=== PATIENT | female | born 1950 | race Caucasian/White ===

== ENCOUNTER → 2020-04-29 09:59 | Outpatient (BNVA) | payer MEDICARE, MEDICAID, SELFPAY | PROVIDERS: Family Provider Family Medicine; Visit Provider Nurse Practitioner | DX: I10 Essential (primary) hypertension (principal); I69.30 Unspecified sequelae of cerebral infarction; J44.9 Chronic obstructive pulmonary disease, unspecified; F41.8 Other specified anxiety disorders; R32 Unspecified urinary incontinence; R73.9 Hyperglycemia, unspecified; E55.9 Vitamin D deficiency, unspecified | CPT/HCPCS: 80053; 80061; 82306; 82607; 83036; 84443; 85025 ==

== ENCOUNTER → 2020-04-30 09:42 | Outpatient (BNVA) | payer MEDICARE, MEDICAID, SELFPAY | PROVIDERS: Family Provider Family Medicine; Visit Provider Nurse Practitioner | DX: I10 Essential (primary) hypertension (principal); R32 Unspecified urinary incontinence | CPT/HCPCS: 80053; 81003; 87077; 87086; 87184 ==

== ENCOUNTER → 2020-09-22 14:22 | Outpatient (BNVA) | payer MEDICARE, MEDICAID, SELFPAY | PROVIDERS: Family Provider Family Medicine; PCP Family Medicine; Referring Provider Family Medicine; Visit Provider Specialist | DX: S82.831D Other fracture of upper and lower end of right fibula, subsequent encounter for closed fracture with routine healing (principal); X58.XXXD Exposure to other specified factors, subsequent encounter | CPT/HCPCS: 73590 ==

== ENCOUNTER 2021-03-22 14:02 | Inpatient (IN) | payer MEDICARE, MEDICAID, SELFPAY ==
[2021-03-22] VITALS (58 sets, daily range): BP systolic 128–149; BP diastolic 60–75; PULSE 64–69; RESP 18–20; TEMP 36.7–37.2; O2SAT 89–94; BMI 21.9; BMI 26.5
--- NOTE | 2021-03-22 14:04 | ED_ITS ---
HPI - Fall General: Chief Complaint: Fall Stated Complaint: FALL/ HIP AND WRIST PAIN Time Seen by Provider: 03/22/21 14:03 History of Present Illness: HPI Narrative: Ms Carty is a 70 yo lady with unclear history who [facility] who presents via [facility] due to fall. She fell out of bed and landed on left side. No preceeding CP, SOB, dizziness, or lightheadedness. No LOC. Immediate pain in wrist and hip. Unable to get up or ambulate. Moderate to severe intensity sharp pain worse with movement. No numbness of tingling. Review of Systems General: Reports: 10 or more systems reviewed and unremarkable except in HPI and below PFSH ED PFSH: Medical History Anxiety with depression COPD (chronic obstructive pulmonary disease) Dependent on walker for ambulation Environmental and seasonal allergies Essential (primary) hypertension History of CVA with residual deficit Right side weakness Urine incontinence Surgical History No history of previous surgery Family History Other Cancer Dementia Diabetes Hypertension Stroke Denies family history of Anesthesia complication Bleeding disorder Social History Smoking and tobacco status: former smoker Second hand smoke exposure: No Smoking risk assessment/counseling performed?: No Alcohol intake: former Desire information about alcohol rehabilitation?: No Counseling given: No Desire information about substance/drug rehabilitation?: No Counseling given: No Adopted: No Caregiver/support person: Yes Lives independently: No Household members: family Housing: House Marital status: Number of children: 3 service: No Current occupational status: retired Pets and animals: Yes Pets & animals: cat(s) and dog(s) History of recent travel: No Current gender identity: Female Physical Exam Narrative: EXAM NARRATIVE: GENERAL/CONSTITUTIONAL - frail-appearing. No acute distress. uncomfortable due to pain Eyes - PERRL, no conjunctival injection ENMT - Atraumatic external nose and ears. Moist mucous membranes NECK - supple. trachea midline CARDIOVASCULAR - regular rate and rhythm. Peripheral pulses 2+ and equal RESPIRATORY -clear to auscultation bilaterally. No retractions or accessory muscle use. ABDOMEN/GI - Nontender/Nondistended. No tenderness to percussion or evidence of peritonitis MSK - left wrist closed deformity with distal CMS intact. Left hip limited ROM severely due to pain, no obvious deformity, closed, distal CMS intact. No other abnormalities on head to toe exam. SKIN - Warm, Dry NEURO - alert and appropriately oriented. strength and sensation intact. Moves all extremities equally. PSYCH - Appropriate mood and affect Course ED course: - Patient was seen and evaluated by me at bedside - Patient placed on cardiac monitors, IV access obtained - Initial evaluation notable for frail appearance, likely close wrist and hip injury - Imaging notable for hip and wrist fracture - labs as noted - Upon serial reexamination after treatment the patient was improved with analgesia - ortho contacted, plan to admit to medicine team - Based on patient history, evaluation, labs, and imaging as interpreted the mos t likely cause of the patient's condition is fall with fractures - The results of ED evaluation were discussed with the patient including plan for admission due to requirement for level of care not available if discharged to prevent significant worsening/deterioration. - Hospitalist contacted and agreed to admit the patient - Patient was admitted without further deterioration or significant events. Vital Signs: Vital signs: Vital Signs Temperature 97.8 F 03/24/21 12:00 Pulse Rate 83 03/24/21 12:00 Respiratory Rate 16 03/24/21 12:00 Blood Pressure 84/58 03/24/21 12:00 Pulse Oximetry 96 03/24/21 12:00 MDM - Fall Medical Records: Attestation: I reviewed the patient's medical records. Lab Data: Attestation: I reviewed the patient's lab results. Labs: Lab Results 03/22/21 03/22/21 03/22/21 16:12 16:12 16:12 WBC 14.3 10^3/uL H 10 ^3/uL (4.0-10.0) RBC 4.26 10^6/uL 10^6 /uL (4.1-5.3) Hgb 13.5 g/dL g/dL (11.5-15.3) Hct 39.6 % % (37.0-47.0) MCV 93.0 fl fl (81-99) MCH 31.7 pg pg (28.0-34.0) MCHC 34.1 g/dL g/dL (30.0-36.0) RDW 13.1 % % (12.1-15.1) Plt Count 223 10^3/cmm 10^3 /cmm (130-400) MPV 10.6 fL H fL (7.4-10.4) Neut % (Auto) 87.0 % % Lymph % (Auto) 6.3 % % Young % (Auto) 5.9 % % Eos % (Auto) 0.1 % % Baso % (Auto) 0.3 % % Neut # (Auto) 12.42 10^3/uL H 1 0^3/uL (1.8-7.7) Lymph # (Auto) 0.9 10^3/uL 10^3/ uL (0.8-4.8) Young # (Auto) 0.8 10^3/uL 10^3/ uL (0.2-0.9) Eos # (Auto) 0.0 10^3/uL 10^3/ uL (0.0-0.8) Baso # (Auto) 0.0 10^3/uL 10^3/ uL (0.0-0.1) Nucleated RBC % (a uto) 0 % % Nucleated RBCs # 0.0 /100WBC /100W BC Sodium 138 mmol/L mmol/L (136-145) Potassium 4.2 mmol/L mmol/L (3.5-5.1) Chloride 103 mmol/L mmol/L (98-107) Carbon Dioxide 24 mmol/L mmol/L (22-29) Anion Gap 15.2 (5-19) BUN 17 mg/dL mg/dL (8-23) Creatinine 0.4 mg/dL L mg/dL (0.5-0.9) GFR Calculation 158.3 mL/min H mL /min (90-130) Glucose 133 mg/dL H mg/dL (65-115) Calculated Osmolal ity 289 mOsm/kg mOsm/ kg (285-295) Calcium 8.9 mg/dL mg/dL (8.5-10.5) Total Bilirubin 0.5 mg/dL mg/dL (0.15-1.2) AST 16 U/L U/L (0-32) ALT 16 U/L U/L (0-33) Alkaline Phosphata se 52 IU/L IU/L (35-105) Troponin T Baselin e 6 ng/L ng/L (0-10) Total Protein 6.5 g/dL L g/dL (6.6-8.7) Albumin 4.1 g/dL g/dL (3.5-5.2) Globulin 2.4 g/dL g/dL (1.3-4.6) Procalcitonin 03/22/21 16:12 WBC RBC Hgb Hct MCV MCH MCHC RDW Plt Count MPV Neut % (Auto) Lymph % (Auto) Young % (Auto) Eos % (Auto) Baso % (Auto) Neut # (Auto) Lymph # (Auto) Young # (Auto) Eos # (Auto) Baso # (Auto) Nucleated RBC % (a uto) Nucleated RBCs # Sodium Potassium Chloride Carbon Dioxide Anion Gap BUN Creatinine GFR Calculation Glucose Calculated Osmolal ity Calcium Total Bilirubin AST ALT Alkaline Phosphata se Troponin T Baselin e Total Protein Albumin Globulin Procalcitonin 0.03 ng/mL ng/mL (0-0.5) EKG Data^: EKG 1: Attestation: I personally reviewed and interpreted this EKG as follows: EKG interpretation date: 03/22/21 EKG interpretation time: 17:15 Interpretation: Twelve-lead EKG shows a regular rhythm at a rate of 66. [place] interval 197. QRS duration 81. QTc 440. left [place] deviation. Interpretation: sinus Rhythm. Discharge Plan Discharge Patient Disposition: Admitted As Inpatient Admit Provider: Austin Rosado Condition: Stable Discharge Diet: Regular Discharge Activity: As per PT/OT instructions Coding Level of Care Code ED Cytotechnologist/Cytology Supervisor for Chg Giovani
--- NOTE | 2021-03-22 14:33 | XRR_ITS ---
PROCEDURE INFORMATION: Exam: XR Left Femur Exam date and time: 03/22/2021 2:33 PM Age: 70 years old Clinical indication: Trauma. Fall out of bed with left thigh/upper leg injury. Pain. TECHNIQUE: Imaging protocol: XR Left femur. Views: 2 views. COMPARISON: CT abdomen pelvis w con* [id number] 01/17/2018 6:36 AM FINDINGS: There is a displaced subcapital/transcervical fracture involving the proximal left femur. Patella baja is noted; correlate for quadriceps dysfunction. No significant osteoarthritis involves the background left hip. Atherosclerotic arterial calcifications are noted. XR/XR femur LT min 2V* [id number] IMPRESSION: 1. Displaced subcapital/transcervical fracture involving the proximal left femur. 2. Patella baja is noted; correlate for quadriceps dysfunction.
--- NOTE | 2021-03-22 14:33 | XRR_ITS ---
PROCEDURE INFORMATION: Exam: XR Left Wrist Exam date and time: 03/22/2021 2:33 PM Age: 70 years old Clinical indication: Trauma. Fall out of bed with left wrist injury. Pain. TECHNIQUE: Imaging protocol: XR Left wrist. Views: 3 or more views. COMPARISON: No relevant prior studies available. FINDINGS: There is a comminuted, mildly displaced intra-articular fracture involving the distal radius. There is a minimally displaced fracture involving the ulnar styloid. The scapholunate and lunotriquetral intervals are maintained. No chondrocalcinosis is seen. XR/XR wrist LT min 3V* [id number] IMPRESSION: 1. Comminuted, mildly displaced intra-articular fracture involving the distal radius. 2. Minimally displaced fracture involving the ulnar styloid.
--- NOTE | 2021-03-22 14:33 | XRR_ITS ---
PROCEDURE INFORMATION: Exam: XR Left Hip Exam date and time: 03/22/2021 2:33 PM Age: 70 years old Clinical indication: Trauma. Fall out of bed with left hip injury. Pain. TECHNIQUE: Imaging protocol: XR Left hip. Views: 2 or 3 views hip with pelvis when performed. COMPARISON: CT abdomen pelvis w con* [id number] 01/17/2018 6:36 AM FINDINGS: There is a displaced subcapital/transcervical fracture involving the proximal left femur. No significant osteoarthritis involves the background left hip. Atherosclerotic arterial calcifications are noted. XR/XR hip LT 2-3V wo/w pel* [id number] IMPRESSION: Displaced subcapital/transcervical fracture involving the proximal left femur.
--- NOTE | 2021-03-22 14:34 | CT_ITS ---
WS: [id number] CT HEAD TECHNIQUE: Noncontrast CT of the head obtained from the skullbase to the vertex. CLINICAL INFORMATION: fall, on antiplatelet COMPARISON: CT April 2017 DLP: 851.[address] scans at [facility] use at least one of these dose optimization techniques: automated e xposure control; mA and/or kV adjustment per patient size (includes targeted exams where dose is matc hed to clinical indication); or iterative reconstruction. FINDINGS: No evidence of intracranial hemorrhage or mass effect. Ventricular system and basal cisterns are harper nt. Moderate small vessel changes with moderate parenchymal volume loss. Chronic lacunar infarcts in bilateral basal ganglia and bilateral thalami. Intracranial vascular calcification. No extra-axial fl uid collections. No evidence of mass or mass effect. Paranasal sinuses and mastoid air cells are well aerated. .Normal visualized soft tissues. CT/CT head wo con* [id number] IMPRESSION: 1. No evidence of intracranial hemorrhage or mass effect. 2. Moderate small vessel changes with moderate parenchymal volume loss. 3. Chronic lacunar infarcts in the bilateral basal ganglia and thalami. 4. No acute intracranial findings.
--- NOTE | 2021-03-22 15:43 | ECG_ITS ---
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 Measurements Intervals [place] Rate: 66 P: 77 MT: 197 QRS: -40 QRSD: 81 T: 77 QT: 418 QTc: 440 Interpretive Statements SINUS RHYTHM LEFT AXIS DEVIATION [QRS AXIS < -30] NONSPECIFIC T-WAVE ABNORMALITY INTERPRETATION BASED ON A DEFAULT AGE OF 40 YEARS Compared to ECG 01/17/2018 12:24:54 T-wave abnormality now present First degree AV block no longer present Incomplete right bundle-branch block no longer present Myocardial infarct finding no longer present Electronically Signed On 03-23-2021 23:25:49 CDT by Shakila Sánchez M.D. [id number] f
[2021-03-22 16:33] LABS: Basophils % 0.3 %; Eosinophils % 0.1 %; Hematocrit 39.6 % (37.0-47.0); Hemoglobin 13.5 g/dL (11.5-15.3); Lymphocytes # 0.9 10^3/uL (0.8-4.8); Lymphocytes % 6.3 %; Mean Corpuscular HGB Conc 34.1 g/dL (30.0-36.0); Mean Corpuscular Hemoglobin 31.7 pg (28.0-34.0); Mean Platelet Volume 10.6 fL (7.4-10.4); Monocytes # 0.8 10^3/uL (0.2-0.9); Monocytes % 5.9 %; Neutrophils # 12.42 10^3/uL (1.8-7.7); Nucleated Red Blood Cells % 0 %; Platelet Count 223 10^3/cmm (130-400); Red Blood Count 4.26 10^6/uL (4.1-5.3); Red Cell Distribution Width 13.1 % (12.1-15.1); White Blood Count 14.3 10^3/uL (4.0-10.0)
[2021-03-22] MEDS: morphine 4 mg/mL SDV 1 mL 2 MG IVP (16:41)
[2021-03-22 16:49] LABS: Troponin(5th) Baseline 6 ng/L (0-10)
[2021-03-22 16:50] LABS: Alanine Aminotransferase 16 U/L (0-33); Albumin Level 4.1 g/dL (3.5-5.2); Alkaline Phosphatase 52 IU/L (35-105); Anion Gap 15.2 (5-19); Aspartate Amino Transferase 16 U/L (0-32); Blood Urea Nitrogen 17 mg/dL (8-23); Calcium 8.9 mg/dL (8.5-10.5); Carbon Dioxide 24 mmol/L (22-29); Chloride 103 mmol/L (98-107); Creatinine Clr Calc Pharmacy 65.3385; Globulin 2.4 g/dL (1.3-4.6); Glomerular Filtration Rate 158.3 mL/min (90-130); Glucose 133 mg/dL (65-115); Osmolality Calculated 289 mOsm/kg (285-295); Potassium 4.2 mmol/L (3.5-5.1); Sodium 138 mmol/L (136-145); Total Bilirubin 0.5 mg/dL (0.15-1.2); Total Protein 6.5 g/dL (6.6-8.7)
--- NOTE | 2021-03-22 17:21 | PM.HP ---
Providers/Chief Complaint Primary Care Provider: Jodi Tse MD Chief Complaint: FALL/ HIP AND WRIST PAIN History of Present Illness Elvira Carty is a 70 year old female with history of hypertension, dyslipidemia CVA on aspirin Plavix, sustained a mechanical fall, [facility]. She presented to the ER, was diagnosed with left wrist and hip fracture. Dr. Logan consulted requested admission to the hospitalist team. Patient is denying chest pain, syncopal event, fever, diarrhea. She is attributing her fall to losing her balance. She denied any vision changes, strokelike symptoms. Review of Systems Const: Denies: chills Eyes: Denies: change in vision ENMT: Denies: throat pain Card: Denies: chest pain Resp: Denies: dyspnea GI: Denies: abdominal pain : Denies: flank pain Musc: Reports: extremity pain and joint pain Skin/Breast: Denies: rash Neuro: Denies: headache(s) Psych: Denies: anxiety Endo: Denies: polyuria Rusty/Lymph: Denies: easy bruising All/Imm: Denies: urticaria Medications/Allergies Home Medications Medication Instructions Recorded Confirmed Last Taken Type acetaminophen 325 mg PO Q4H PRN 03/22/21 03/22/21 Unknown History amlodipine 2.5 mg PO DAILY@209903/22/21 03/22/21 03/21/21 History bisacodyl 10 mg NM DAILY PRN 03/22/21 03/22/21 Unknown History citalopram 10 mg PO DAILY@79903/22/21 03/22/21 03/22/21 History clonidine HCl 0.05 mg PO BID@03/22/21 03/22/21 03/22/21 History clopidogrel 75 mg PO DAILY@89903/22/21 03/22/21 03/22/21 History fluticasone propion-salmeterol 1 inh INHALATION BID@03/22/21 03/22/21 03/22/21 History hydrocodone-acetaminophen 1 tab PO Q4H PRN 03/22/21 03/22/21 03/22/21 History magnesium hydroxide [Milk of 30 ml PO DAILY PRN 03/22/21 03/22/21 Unknown History Magnesia] simvastatin 20 mg PO DAILY@2100 03/22/21 03/22/21 03/21/21 History sodium phosphates [Enema] 118 ml NM DAILY PRN 03/22/21 03/22/21 Unknown History valsartan 320 mg PO DAILY@0900 03/22/21 03/22/21 03/22/21 History Allergies Allergy/AdvReac Type Severity Reaction Status Date / Time No Known Allergies Allergy Verified 03/22/21 14:11 PFSH Acute PFSH: Medical History Anxiety with depression COPD (chronic obstructive pulmonary disease) Dependent on walker for ambulation Environmental and seasonal allergies Essential (primary) hypertension History of CVA with residual deficit Right side weakness Urine incontinence Surgical History No history of previous surgery Family History Other Cancer Dementia Diabetes Hypertension Stroke Denies family history of Anesthesia complication Bleeding disorder Social History Smoking and tobacco status: former smoker Second hand smoke exposure: No Smoking risk assessment/counseling performed?: No Alcohol intake: former Desire information about alcohol rehabilitation?: No Counseling given: No Desire information about substance/drug rehabilitation?: No Counseling given: No Adopted: No Caregiver/support person: Yes Lives independently: No Household members: family Housing: House Marital status: Number of children: 3 service: No Current occupational status: retired Pets and animals: Yes Pets & animals: cat(s) and dog(s) History of recent travel: No Current gender identity: Female Vitals/I&O/Wt Last Vital Signs Temp 98.0 F 03/22/21 14:04 Pulse 69 03/22/21 14:07 Resp 20 H 03/22/21 16:41 BP 130/66 03/22/21 16:40 Pulse Ox 90 03/22/21 16:40 Weight last 48 hrs Weight 63.503 kg Physical Exam Narrative: EXAM NARRATIVE: Patient was laying comfortably Limited range of motion of left leg, left wrist in splint Left leg is rotated and shortened No vascular compromise S1, S2 sinus rhythm no murmur appreciated Clinically looks dehydrated EOMI, PERRLA Able to understand my questions appropriately Audible stridor or wheezing absent Saturating well on room air Soft abdomen Data : 03/23/21 02:25 03/23/21 02:25 A&P Assessment and plan (1) Closed fracture of proximal end of right fibula: Status: Acute Qualifiers: Encounter type: initial encounter Fracture morphology: other fracture Qualified Code(s): S82.831A - Other fracture of upper and lower end of right fibula, initial encounter for closed fracture (2) Wrist fracture: Status: Acute Additional A&P Information Mechanical fall No signs of syncope, seizure, patient attributing her falls to losing balance while getting out of bed Left hip and wrist fracture Hold aspirin Plavix Dr. Logan consulted N.p.o. after midnight We will keep her on maintenance fluid SCDs DVT prophylaxis Full code Attestations Medical Necessity Statement*: Requiring surgical intervention anticipating stay in the hospital cross more than 2 midnights Time Spent in Patient Care: Greater than 35 minutes Coding Level of Care Code Acute Front Desk Team Member for Chg Fwd Diagnoses Closed fracture of proximal end of right fibula S82.831A Encounter type: initial encounter Fracture morphology: other fracture Wrist fracture S62.109A
[2021-03-22 18:18] LABS: Procalcitonin 0.03 ng/mL (0-0.5)
[2021-03-22 18:34] LABS: Troponin 5 2HR 6.72 ng/L (0-10); Troponin 5 2HR Delta 0.72 ABS# (0-10)
[2021-03-22] MEDS: HYDROmorphone 1 mg/mL INJ 1 mL 0.4 MG IVP (19:40)
--- NOTE | 2021-03-22 20:10 | PC.NURSE ---
SUGAR TONG SPLINT TO LEFT WRIST. CAP REFILL LESS THAN 3 SECONDS FOLLOWING SPLINT APPLICATION.
[2021-03-22] MEDS: amlodipine 5 mg Tablet 2.5 MG PO (21:40)
[2021-03-22] MEDS: cloNIDine 0.1 mg Tablet 0.05 MG PO (21:40)
[2021-03-22] MEDS: HYDROcodone-acetaminophen 10-325 mg Tablet 1 TAB PO (21:40)
[2021-03-22] MEDS: ondansetron 2 mg/ML SDV 2 mL 4 MG IVP (21:40)
[2021-03-22] MEDS: sodium chloride 0.9% 1,000 ML 75 ML IV (21:41)
[2021-03-23] VITALS (19 sets, daily range): BP systolic 105–148; BP diastolic 54–89; PULSE 72–98; RESP 16–18; TEMP 36.3–39; O2SAT 91–97
--- NOTE | 2021-03-23 | SCC_ITS ---
Procedure: 1. Left hip hemiarthroplasty 2. Left closed reduction left distal radius and splinting 9.6 seconds of fluoroscopic guidance, for a cumulative dose of 0.16 mGy, was provided to Dr. Logan by the radiology department. C-arm images of the LEFT wrist were saved for the patient's permanent record. [facility]
--- NOTE | 2021-03-23 | XR_ITS ---
WS: [id number] INTRAOPERATIVE TECHNIQUE: 5 Spot fluoroscopic images for intraoperative purposes. FLUOROSCOPY TIME: 9.6 seconds CLINICAL INFORMATION: DANIEL PICS COMPARISON: None. FINDINGS: Comminuted fracture distal radius post reduction with splint material. Comminuted fracture ulna stylo id. XR/XR wrist LT 1V [id number] IMPRESSION: Images obtained for intraoperative purposes.
[2021-03-23 02:57] LABS: Basophils % 0.4 %; Eosinophils % 0.2 %; Hematocrit 36.3 % (37.0-47.0); Lymphocytes # 1.7 10^3/uL (0.8-4.8); Lymphocytes % 18.5 %; Mean Corpuscular HGB Conc 33.1 g/dL (30.0-36.0); Mean Corpuscular Hemoglobin 31.4 pg (28.0-34.0); Mean Platelet Volume 10.4 fL (7.4-10.4); Monocytes % 10.7 %; Neutrophils # 6.25 10^3/uL (1.8-7.7); Nucleated Red Blood Cells % 0 %; Platelet Count 211 10^3/cmm (130-400); Red Blood Count 3.82 10^6/uL (4.1-5.3)
[2021-03-23 03:21] LABS: Anion Gap 11.1 (5-19); Blood Urea Nitrogen 19 mg/dL (8-23); Calcium 8.7 mg/dL (8.5-10.5); Carbon Dioxide 26 mmol/L (22-29); Chloride 103 mmol/L (98-107); Glomerular Filtration Rate 122.3 mL/min (90-130); Glucose 112 mg/dL (65-115); Magnesium 2.1 mg/dL (1.7-2.3); Osmolality Calculated 285 mOsm/kg (285-295); Potassium 4.1 mmol/L (3.5-5.1); Sodium 136 mmol/L (136-145)
[2021-03-23] MEDS: HYDROmorphone 1 mg/mL INJ 1 mL 0.4 MG IVP (06:01)
--- NOTE | 2021-03-23 06:45 | PC.NURSE ---
Patient was incontinent a moderate amount and post void residual was done of 70 ml.
--- NOTE | 2021-03-23 07:04 | PM.CONSULT ---
Documented by User: EMETERIO Peterson 03/23/21 07:14 Providers/Reason For Consult Consulting Physician/Specialty*: Orthopedics Reason for Consult*: Left hip pain and left wrist pain Attending Physician: Austin Rosado MD Primary Care Provider: Jodi Tse MD History of Present Illness History of Present Illness Elvira Carty is a 70 year old female who lives alone sustained a fall on 03/22/2021. She reports increased left wrist and left hip pain this been constant sharp stabbing in nature. She presented to [facility] emergency room where x-rays confirmed a left wrist and left hip fracture orthopedics was consulted for her injuries. She was evaluated with no family present. She reports constant sharp stabbing pain in the left wrist any movement makes it much worse. Rest is given her some temporary relief. She describes pain in her left wrist denies any pain in her left elbow or shoulder. She ranks it as 5 out of 10 on the pain scale. Any use of the left wrist makes it much worse. She is right-hand dominant. She also reports left hip pain any movement making it much worse. She describes the sharp stabbing spasming type pain that radiates down her left leg. Most of the pain localized to the left hip. She denies any knee or ankle pain. Any use of the leg makes it much worse rest gives her some temporary relief. She denies any back or neck pain she describes the left hip pain as 8 out of 10 on the pain scale. Extensive review the patient's past medical history, surgical history, allergies, social history, past family history, and review of systems were performed. Review of Systems General: Reports: 10 or more systems reviewed and unremarkable except in HPI and below Meds/Allergies Home Medications and Allergies Home Medications Medication Instructions Recorded Confirmed Last Taken Type acetaminophen 325 mg PO Q4H PRN 03/22/21 03/22/21 Unknown History amlodipine 2.5 mg PO DAILY@2100 03/22/21 03/22/21 03/21/21 History bisacodyl 10 mg IN DAILY PRN 03/22/21 03/22/21 Unknown History citalopram 10 mg PO DAILY@0800 03/22/21 03/22/21 03/22/21 History clonidine HCl 0.05 mg PO BID@03/22/21 03/22/21 03/22/21 History clopidogrel 75 mg PO DAILY@89903/22/21 03/22/21 03/22/21 History fluticasone propion-salmeterol 1 inh INHALATION BID@03/22/21 03/22/21 03/22/21 History hydrocodone-acetaminophen 1 tab PO Q4H PRN 03/22/21 03/22/21 03/22/21 History magnesium hydroxide [Milk of 30 ml PO DAILY PRN 03/22/21 03/22/21 Unknown History Magnesia] simvastatin 20 mg PO DAILY@2100 03/22/21 03/22/21 03/21/21 History sodium phosphates [Enema] 118 ml IN DAILY PRN 03/22/21 03/22/21 Unknown History valsartan 320 mg PO DAILY@89903/22/21 03/22/21 03/22/21 History Allergies Allergy/AdvReac Type Severity Reaction Status Date / Time No Known Allergies Allergy Verified 03/22/21 14:11 Current Medications Current Medications Generic Name Dose Route Start Last Admin Trade Name Freq PRN Reason Stop Dose Admin Hydrocodone Bitart/Acetaminophen 1 tab 03/22/21 19:07 03/22/21 21:40 Hydrocodone-Acetaminophen 10-325 Mg Tablet PO 1 tab Q4H PRN Administration Pain Amlodipine Besylate 2.5 mg 03/22/21 21:00 03/22/21 21:40 Amlodipine 5 Mg Tablet PO 2.5 mg DAILY@2099 BARBARA Administration Clonidine HCl 0.05 mg 03/22/21 21:00 03/22/21 21:40 Clonidine 0.1 Mg Tablet PO 0.05 mg BID@ BARBARA Administration Hydromorphone HCl 0.4 mg 03/22/21 19:07 03/23/21 06:01 Hydromorphone 1 Mg/Ml Inj 1 Ml IVP 0.4 mg Q4H PRN Administration pain Sodium Chloride 1,000 mls @ 75 mls/hr 03/22/21 19:07 03/22/21 21:41 Sodium Chloride 0.9% IV 75 mls/hr .[id number] BARBARA Administration Ondansetron HCl 4 mg 03/22/21 19:07 03/22/21 21:40 Ondansetron 2 Mg/Ml Sdv 2 Ml IVP 4 mg Q6H PRN Administration NAUSEA AND VOMITING PFSH Acute PFSH: Medical History Anxiety with depression COPD (chronic obstructive pulmonary disease) Dependent on walker for ambulation Environmental and seasonal allergies Essential (primary) hypertension History of CVA with residual deficit Right side weakness Urine incontinence Surgical History No history of previous surgery Family History Other Cancer Dementia Diabetes Hypertension Stroke Denies family history of Anesthesia complication Bleeding disorder Social History Smoking and tobacco status: former smoker Second hand smoke exposure: No Smoking risk assessment/counseling performed?: No Alcohol intake: former Desire information about alcohol rehabilitation?: No Counseling given: No Desire information about substance/drug rehabilitation?: No Counseling given: No Adopted: No Caregiver/support person: Yes Lives independently: No Household members: family Housing: House Marital status: Number of children: 3 service: No Current occupational status: retired Pets and animals: Yes Pets & animals: cat(s) and dog(s) History of recent travel: No Current gender identity: Female Vitals/I&O/Wt Last Vital Signs Temp 98.9 F 03/23/21 04:00 Pulse 73 03/23/21 04:00 Resp 17 03/23/21 06:01 BP 119/74 03/23/21 04:00 Pulse Ox 92 03/23/21 04:00 Weight last 48 hrs Weight 164 lb 9.6 oz Weight 140 lb Physical Exam Narrative: EXAM NARRATIVE: Evaluation of her lower extremities is obvious deformity to the left lower extremity positive logroll on the left negative on the right. Skin is clear warm feet warm good cap refill. Normal station light touch to both lower extremities. Wiggles her toes are warm to touch dorsalis pedis and posterior tibial pulses are 2+. Calves are supple no medial thigh tenderness. She has no palpable pain about the lumbar spine. Evaluation of the upper extremities. She has a splint on her left wrist and and forearm. Wiggles all digits with normal station light touch. Skin is warm hands are warm with good sensation to light touch. She is tender with palpation over the left distal radius region. She has no palpable pain over the left elbow or shoulder. Radial pulses palpable. She has no palpable pain throughout the right upper extremity at the wrist elbow or shoulder. Normal station light touch full range of motion of the right upper extremity. HENMT: COMMON NORMALS: normocephalic and atraumatic HEAD & SCALP: normocephalic and atraumatic Neck/C-Spine: CERVICAL SPINE: Yes cervical ROM normal Resp: COMMON NORMALS: normal respiratory effort Cardio: COMMON NORMALS: regular rate RATE: regular rate GI: COMMON NORMALS: non-tender : COMMON NORMALS: Yes no CVA tenderness BLADDER/KIDNEY EXAM: Yes no CVA tenderness Back/Pelvis: COMMON NORMALS: no CVA tenderness LUMBAR SPINE/LOWER BACK: Yes normal to inspection Psych: COMMON NORMALS: cooperative and speech normal APPEARANCE: Yes grossly normal SPEECH: Yes normal speech Skin: COMMON NORMALS: no rashes or lesions noted GENERAL SKIN EXAM: no rashes or lesions noted A&P Assessment and plan (1) Displaced fracture of left femoral neck: Discussed treatment options with the patient which would include close reduction of the left distal radius fracture as well as open reduction internal fixation of the left hip with hemiarthroplasty. We will await medical clearance. We will keep her n.p.o. Discussed these treatment courses with Dr. Logan at length and he agrees the above-stated plan. Status: Acute (2) Distal radius fracture, left: Status: Acute Coding Level of Care Code Acute Straight Knife Cutter Machine for [facility] Fwd Exam Comprehensive Diagnoses Displaced fracture of left femoral neck S72.002A Distal radius fracture, left S52.502A Documented by User: Bg Logan DO 03/23/21 08:26 Meds/Allergies Home Medications and Allergies Home Medications Medication Instructions Recorded Confirmed Last Taken Type acetaminophen 325 mg PO Q4H PRN 03/22/21 03/22/21 Unknown History amlodipine 2.5 mg PO DAILY@2100 03/22/21 09/21/21 09/20/21 History bisacodyl 10 mg IN DAILY PRN 03/22/21 03/22/21 Unknown History citalopram 10 mg PO DAILY@79903/22/21 03/22/21 03/22/21 History clonidine HCl 0.05 mg PO BID@03/22/21 03/22/21 03/22/21 History clopidogrel 75 mg PO DAILY@89903/22/21 03/22/21 03/22/21 History fluticasone propion-salmeterol 1 inh INHALATION BID@03/22/21 03/22/21 03/22/21 History hydrocodone-acetaminophen 1 tab PO Q4H PRN 03/22/21 03/22/21 03/22/21 History magnesium hydroxide [Milk of 30 ml PO DAILY PRN 03/22/21 03/22/21 Unknown History Magnesia] simvastatin 20 mg PO DAILY@209903/22/21 03/22/21 03/21/21 History sodium phosphates [Enema] 118 ml IN DAILY PRN 03/22/21 03/22/21 Unknown History valsartan 320 mg PO DAILY@89903/22/21 03/22/21 03/22/21 History Allergies Allergy/AdvReac Type Severity Reaction Status Date / Time No Known Allergies Allergy Verified 03/22/21 14:11 PFSH Acute PFSH: Medical History Anxiety with depression COPD (chronic obstructive pulmonary disease) Dependent on walker for ambulation Environmental and seasonal allergies Essential (primary) hypertension History of CVA with residual deficit Right side weakness Urine incontinence Surgical History No history of previous surgery Family History Other Cancer Dementia Diabetes Hypertension Stroke Denies family history of Anesthesia complication Bleeding disorder Social History Smoking and tobacco status: former smoker Second hand smoke exposure: No Smoking risk assessment/counseling performed?: No Alcohol intake: former Desire information about alcohol rehabilitation?: No Counseling given: No Desire information about substance/drug rehabilitation?: No Counseling given: No Adopted: No Caregiver/support person: Yes Lives independently: No Household members: family Housing: House Marital status: Number of children: 3 service: No Current occupational status: retired Pets and animals: Yes Pets & animals: cat(s) and dog(s) History of recent travel: No Current gender identity: Female A&P Assessment and plan (1) Distal radius fracture, left: possibly fix distal radius today as well Status: Acute Consult Attestations Medical Necessity Statement: per primary service Coding Level of Care Code Acute Straight Knife Cutter Machine for [facility] Fwd Exam Comprehensive Diagnoses Displaced fracture of left femoral neck S72.002A Distal radius fracture, left S52.502A
[2021-03-23] MEDS: cloNIDine 0.1 mg Tablet 0.05 MG PO ×2 (08:49→20:42)
--- NOTE | 2021-03-23 09:44 | P.ANESASSM_ITS ---
Pre-Anesthetic Assessment Pre-Anesthetic Assessment: Height/Weight: Height 1.68 m Weight 74.661 kg Temp Pulse Resp BP Pulse Ox 102.2 F H 79 18 136/72 95 03/23/21 09:24 03/23/21 09:24 03/23/21 09:24 03/23/21 09:24 03/23/21 09:24 Proposed Procedure: Operation Date: 03/23/21 10:25 Proposed Procedures p Hemiarthroplasty Hip(Left) - Bg H Doreen, DO Was Beta Bradley taken within 24 hours: N/A Was Clonidine taken within 24 hours: N/A Social: Social History: No alcohol and No tobacco Exam: Pre-Anes Outpt Exam: alert, oriented x 3, clear to auscultation bilaterally and regular rate & rhythm Airway: Submandibular: WNL Cervical ROM: WNL Dentition: False Pulmonary: Pulmonary: COPD CV/HEM: CV/HEM: HTN Metabolic: Metabolic: Hyperlipidemia Musc/skel: Musc/skel: Weakness Neuropsych: Neuropsych: CVA and Deficit Comments: Blood thinner Anesthetic Plan: ASA status: 3 Anesthesia: General Risk of > 500 ml blood loss (7ml/kg in children): No Meds/Allergies 2 Current Medications: Current Medications Generic Name Dose Route Start Last Admin Trade Name Freq PRN Reason Stop Dose Admin Hydrocodone Bitart /Acetaminophen 1 tab 03/22/21 19:07 03/22/21 21:40 Hydrocodone-Acet aminophen 10-325 M g Tablet PO 1 tab Q4H PRN Administration Pain Amlodipine Besylat e 2.5 mg 03/22/21 21:00 03/22/21 21:40 Amlodipine 5 Mg Tablet PO 2.5 mg DAILY@2100 BARBARA Administration Clonidine HCl 0.05 mg 03/22/21 21:00 03/23/21 08:49 Clonidine 0.1 Mg Tablet PO 0.05 mg BID@ BARBARA Administration Hydromorphone HCl 0.4 mg 03/22/21 19:07 03/23/21 06:01 Hydromorphone 1 Mg/Ml Inj 1 Ml IVP 0.4 mg Q4H PRN Administration pain Sodium Chloride 1,000 mls @ 75 ml s/hr 03/22/21 19:07 03/22/21 21:41 Sodium Chloride 0.9% IV 75 mls/hr .[id number] BARBARA Administration Ondansetron HCl 4 mg 03/22/21 19:07 03/22/21 21:40 Ondansetron 2 Mg /Ml Sdv 2 Ml IVP 4 mg Q6H PRN Administration NAUSEA AND VOMITI NG PFSH Anesthesia PFSH: Medical History Anxiety with depression COPD (chronic obstructive pulmonary disease) Dependent on walker for ambulation Environmental and seasonal allergies Essential (primary) hypertension History of CVA with residual deficit Right side weakness Urine incontinence Surgical History No history of previous surgery Family History Other Cancer Dementia Diabetes Hypertension Stroke Denies family history of Anesthesia complication Bleeding disorder Social History Smoking and tobacco status: former smoker Second hand smoke exposure: No Smoking risk assessment/counseling performed?: No Alcohol intake: former Desire information about alcohol rehabilitation?: No Counseling given: No Desire information about substance/drug rehabilitation?: No Counseling given: No Adopted: No Caregiver/support person: Yes Lives independently: No Household members: family Housing: House Marital status: Number of children: 3 service: No Current occupational status: retired Pets and animals: Yes Pets & animals: cat(s) and dog(s) History of recent travel: No Current gender identity: Female Data Anesthesia CBC & Chem 7: 03/23/21 02:25 03/23/21 02:25 Other Labs: Laboratory Results - last 48 hr 03/22/21 03/22/21 03/22/21 16:12 16:12 16:12 WBC 14.3 H RBC 4.26 Hgb 13.5 Hct 39.6 MCV 93.0 MCH 31.7 MCHC 34.1 RDW 13.1 Plt Count 223 MPV 10.6 H Neut % (Auto) 87.0 Lymph % (Auto) 6.3 Douglas % (Auto) 5.9 Eos % (Auto) 0.1 Baso % (Auto) 0.3 Neut # (Auto) 12.42 H Lymph # (Auto) 0.9 Douglas # (Auto) 0.8 Eos # (Auto) 0.0 Baso # (Auto) 0.0 Nucleated RBC % (auto) 0 Nucleated RBCs # 0.0 Sodium 138 Potassium 4.2 Chloride 103 Carbon Dioxide 24 Anion Gap 15.2 BUN 17 Creatinine 0.4 L GFR Calculation 158.3 H Glucose 133 H Calculated Osmolality 289 Calcium 8.9 Magnesium Total Bilirubin 0.5 AST 16 ALT 16 Alkaline Phosphatase 52 Troponin T Baseline 6 Troponin T 120 Minute Delta Troponin T Total Protein 6.5 L Albumin 4.1 Globulin 2.4 Procalcitonin 03/22/21 03/22/21 03/23/21 16:12 18:05 02:25 WBC 9.0 RBC 3.82 L Hgb 12.0 Hct 36.3 L MCV 95.0 MCH 31.4 MCHC 33.1 RDW 13.0 Plt Count 211 MPV 10.4 Neut % (Auto) 70.0 Lymph % (Auto) 18.5 Douglas % (Auto) 10.7 Eos % (Auto) 0.2 Baso % (Auto) 0.4 Neut # (Auto) 6.25 Lymph # (Auto) 1.7 Douglas # (Auto) 1.0 H Eos # (Auto) 0.0 Baso # (Auto) 0.0 Nucleated RBC % (auto) 0 Nucleated RBCs # 0.0 Sodium Potassium Chloride Carbon Dioxide Anion Gap BUN Creatinine GFR Calculation Glucose Calculated Osmolality Calcium Magnesium Total Bilirubin AST ALT Alkaline Phosphatase Troponin T Baseline Troponin T 120 Minute 6.72 Delta Troponin T 0.72 Total Protein Albumin Globulin Procalcitonin 0.03 03/23/21 02:25 WBC RBC Hgb Hct MCV MCH MCHC RDW Plt Count MPV Neut % (Auto) Lymph % (Auto) Douglas % (Auto) Eos % (Auto) Baso % (Auto) Neut # (Auto) Lymph # (Auto) Douglas # (Auto) Eos # (Auto) Baso # (Auto) Nucleated RBC % (auto) Nucleated RBCs # Sodium 136 Potassium 4.1 Chloride 103 Carbon Dioxide 26 Anion Gap 11.1 BUN 19 Creatinine 0.5 GFR Calculation 122.3 Glucose 112 Calculated Osmolality 285 Calcium 8.7 Magnesium 2.1 Total Bilirubin AST ALT Alkaline Phosphatase Troponin T Baseline Troponin T 120 Minute Delta Troponin T Total Protein Albumin Globulin Procalcitonin Cardiac Studies: No Data to Display
--- NOTE | 2021-03-23 09:47 | PC.CHAP ---
Pastoral Care Encounter/Spiritual Assessment Type of Contact [] Declined skiver operator visit [] Patient/Family/Request visit [] Outpatient visit [] Follow-up visit [] Physician referral [] Code/Alert [x] Routine visit [] Staff referral [] Actively dying [] Patient sleeping [] Family support [] [] Out of room [] Palliative care [] [x] Receiving care in room [] Pre-surgical visit [] Trauma [] Long length of stay [] ICU visit [] Other: Relational/Emotional Strength [] Patient feels connected with others/family/visitors/staff [] Distress [] Loneliness/isolation [] Abandonment Spirituality of Patient [] Person of Rosibel [] Attends Temple of their [place] [] Believes in Prayer [] Reads Bible or Scientology materials [] There are Spiritual issues to be addressed Glass Bead Maker Interventions [] Prayer [] Active listening [] Non-anxious presence [] Spiritual/emotional support [] Crisis/trauma care [] Spiritual counseling [] Bereavement support [] Provided bereavement packet [] Provided Bible/devotional materials [] Provided toy/stuffed animal, coloring book to patient or family member [] Provided Communion [] Anointing/[place] [] Salvation [] Completed spiritual assessment [] Other: Impact on Illness or Injury [] Angry [] Fearful [] Anxious [] Often cries [] Exhaustion [] Unable to work [] Unable to attend confucianism [] Unable to walk/stand [] Unable to read [] Unable to drive [] Unable to eat/drink [] Unable to sleep [] Unable to be with family [] Patient intubated [] Other: Summary Time spent with patient
--- NOTE | 2021-03-23 09:49 | W.PM.OPSUD ---
Surgery/Procedure H&P Update DATE OF PROCEDURE: March 23, 2021 DATE H&P PERFORMED: 03/23/21 PLANNED PROCEDURE: Operation Date: 03/23/21 10:25 Proposed Procedures p Hemiarthroplasty Hip(Left) - Bg Logan DO
[2021-03-23] MEDS: acetaminophen 1,000 MG/100 ML PIGGYBACK 400 MG IV (10:04)
[2021-03-23] MEDS: sodium chloride 0.9% 1,000 ML 30 ML IV (10:04)
[2021-03-23] MEDS: vancomycin 1,000 MG SDV 1000 MG XX (11:45)
--- NOTE | 2021-03-23 12:34 | PM.OP ---
Operative Report Date of procedure: March 23, 2021 Pre-op Diagnosis: Left femoral neck fracture Post-op diagnosis: same Surgeon: Bg Logan Lead Enterprise Architect: Sanchez Cabrera Lead Enterprise Architect: EMETERIO Peterson was used as an pediatric physical therapy assistant in this case for the reason of having extra bare hands to perform the case. As well as some experience to help with the reduction of the hip. Sanchez assisted with retraction positioning closure and helping hold the leg and reduced leg into position. Anesthesia: General Estimated blood loss (mL): 20 Condition: stable Disposition: PACU
--- NOTE | 2021-03-23 13:37 | PM.PN ---
Subjective Subjective: Interval history: Patient was seen before surgery I did talk with her son who had some questions regarding surgery, he did agreed to continue with the current plan of surgical intervention Patient did not endorse any complaints overnight, pain was under control Postoperatively stable vitals Estimated blood loss 20 mL 1. Left hip hemiarthroplasty 2. Left closed reduction left distal radius and splinting Vitals/I&O/Wt Last Vital Signs Temp 97.7 F 03/23/21 13:20 Pulse 80 03/23/21 13:20 Resp 18 03/23/21 13:20 BP 148/89 03/23/21 13:20 Pulse Ox 94 03/23/21 13:20 03/22/21 03/23/21 03/23/21 22:59 06:59 14:59 Intake Total 160 / 160 Output Total 100 / 100 Balance 60 / 60 Weight last 48 hrs Weight 74.661 kg Weight 63.503 kg Physical Exam Narrative: EXAM NARRATIVE: Patient was laying supine without any active discomfort elderly female S1, S2 no murmur appreciated clinically does look slightly dehydrated Abdomen soft Lower extremity no vascular compromise Presurgery left leg was rotated and short which improved after the surgery No neurological deficits Saturating well on room air Awake and alert Neurological deficits Patient not complaining of active pain Urinary Catheter Management^: [facility]is: Cath Placed During This Visit: yes Urinary Catheter Date of Insertion: 03/23/21 Urinary Catheter Time of Insertion: 11:22 Data : 03/23/21 02:25 03/23/21 02:25 A&P Assessment and plan (1) Distal radius fracture, left: Status: Acute (2) Displaced fracture of left femoral neck: Status: Acute (3) COPD (chronic obstructive pulmonary disease): Status: Acute (4) Anxiety with depression: Status: Acute (5) History of CVA with residual deficit: Status: Acute (6) Essential (primary) hypertension: Status: Acute (7) Urine incontinence: Status: Acute (8) Dependent on walker for ambulation: Status: Acute Additional A&P Information Postop day 0 1. Left hip hemiarthroplasty 2. Left closed reduction left distal radius and splinting Postoperatively patient is doing well with normal vitals blood pressure 140/89 mmHg patient is not complaining of active pain We will repeat labs tomorrow estimated blood loss during surgery 20 mL Patient is doing well successfully extubated to room air Watch for postoperative complications closely Incentive spirometry DuoNeb Opioids with bowel regimen PT evaluation Start her on cardiac diet Full code DVT prophylaxis to be added as per orthopedics Aspirin, Plavix to be started tomorrow, valsartan can be started as well for her blood pressure Attestations Medical Necessity Statement*: Continue medical management Time Spent in Patient Care: 16 - 35 minutes Coding Level of Care Code Acute Automotive Glass Specialist for [facility] Fwd Diagnoses Distal radius fracture, left S52.502A Displaced fracture of left femoral neck S72.002A COPD (chronic obstructive pulmonary disease) J44.9 Anxiety with depression F41.8 History of CVA with residual deficit I69.30 Essential (primary) hypertension I10 Urine incontinence R32 Dependent on walker for ambulation Z99.89
--- NOTE | 2021-03-23 13:58 | ANE.PACU2 ---
Inpatient post-anesthesia follow up: Airway intact: Yes Vital signs: Temperature 97.7 F Pulse Rate [Apical ] 64 Pulse Rate 80 Respiratory Rate 18 Blood Pressure [Le ft Arm] 149/68 Blood Pressure 148/89 Pulse Oximetry 94 Oxygen Delivery Me thod Room Air Oxygen Flow Rate 3 Fraction of Inspir ed Oxygen Hydration adequate: Yes Nausea and vomiting: No Pain level: 2 Mental status: Baseline
[2021-03-23 14:35] LABS: Basophils # 0.1 10^3/uL (0.0-0.1); Basophils % 0.3 %; Hematocrit 39.2 % (37.0-47.0); Hemoglobin 12.3 g/dL (11.5-15.3); Lymphocytes # 0.9 10^3/uL (0.8-4.8); Lymphocytes % 4.9 %; Mean Corpuscular HGB Conc 31.4 g/dL (30.0-36.0); Mean Corpuscular Hemoglobin 31.9 pg (28.0-34.0); Mean Corpuscular Volume 101.6 fl (81-99); Mean Platelet Volume 10.4 fL (7.4-10.4); Monocytes # 0.8 10^3/uL (0.2-0.9); Monocytes % 4.7 %; Neutrophils # 15.57 10^3/uL (1.8-7.7); Neutrophils % 89.6 %; Nucleated Red Blood Cells % 0 %; Platelet Count 207 10^3/cmm (130-400); Red Blood Count 3.86 10^6/uL (4.1-5.3); Red Cell Distribution Width 13.2 % (12.1-15.1); White Blood Count 17.4 10^3/uL (4.0-10.0)
[2021-03-23] MEDS: HYDROcodone-acetaminophen 10-325 mg Tablet 1 TAB PO ×2 (14:36→19:46)
[2021-03-23] MEDS: atorvastatin 40 mg Tablet 20 MG PO (20:41)
[2021-03-23] MEDS: amlodipine 5 mg Tablet 2.5 MG PO (20:42)
[2021-03-24] VITALS (12 sets, daily range): BP systolic 84–114; BP diastolic 58–70; PULSE 75–103; RESP 14–18; TEMP 36.6–37.4; O2SAT 91–98
[2021-03-24 02:36] LABS: Basophils % 0.2 %; Hematocrit 32.3 % (37.0-47.0); Hemoglobin 10.6 g/dL (11.5-15.3); Lymphocytes # 1.2 10^3/uL (0.8-4.8); Mean Corpuscular HGB Conc 32.8 g/dL (30.0-36.0); Mean Corpuscular Hemoglobin 31.7 pg (28.0-34.0); Mean Corpuscular Volume 96.7 fl (81-99); Mean Platelet Volume 10.5 fL (7.4-10.4); Monocytes # 1.7 10^3/uL (0.2-0.9); Monocytes % 16.1 %; Neutrophils % 71.5 %; Nucleated Red Blood Cells % 0 %; Platelet Count 222 10^3/cmm (130-400); Red Blood Count 3.34 10^6/uL (4.1-5.3); Red Cell Distribution Width 13.2 % (12.1-15.1); White Blood Count 10.2 10^3/uL (4.0-10.0)
[2021-03-24 02:56] LABS: Anion Gap 14.4 (5-19); Blood Urea Nitrogen 21 mg/dL (8-23); Calcium 8.5 mg/dL (8.5-10.5); Carbon Dioxide 25 mmol/L (22-29); Chloride 104 mmol/L (98-107); Glucose 142 mg/dL (65-115); Osmolality Calculated 293 mOsm/kg (285-295); Potassium 4.4 mmol/L (3.5-5.1); Sodium 139 mmol/L (136-145)
--- NOTE | 2021-03-24 07:37 | P.PN_ITS ---
Subjective Subjective: Interval history: POD 1 patient alert in no obvious distress. No family present. Vitals/I&O/Wt Last Vital Signs Temp 99.1 F 03/24/21 04:00 Pulse 103 H 03/24/21 04:00 Resp 17 03/24/21 04:00 BP 114/70 03/24/21 04:00 Pulse Ox 91 03/24/21 04:00 03/23/21 03/24/21 03/24/21 22:59 06:59 14:59 Intake Total 1300 / 2460 260 / 2720 Output Total 400 / 500 450 / 950 Balance 900 / 1960 -190 / 1770 Weight last 48 hrs Weight 164 lb 9.6 oz Weight 140 lb Physical Exam Narrative: EXAM NARRATIVE: Left upper extremity: Splint intact fingers are warm, with good capillary refill. Wiggles digits appears to have normal sensation light touch. Left lower extremity incisions and dressing clean and dry. Dorsiflex and plantar flexes both feet toes are warm with good cap refill. Calves are supple no medial thigh tenderness. Urinary Catheter Management^: [facility]is: Cath Placed During This Visit: yes, but has since been removed by the nurse Reason for Continuing Indwelling Catheter: Perioperative Use in Selected Surgeries Urinary Catheter Date of Insertion: 03/23/21 Urinary Catheter Time of Insertion: 11:22 Date Urinary Catheter Removed: 03/24/21 Time Urinary Catheter Discontinued: 06:08 Data : 03/24/21 02:08 03/24/21 02:08 A&P Assessment and plan (1) Distal radius fracture, left: Status: Acute (2) Displaced fracture of left femoral neck: Status: Acute Additional A&P Information Continue to ice and elevate left upper extremity with splint and remain nonweightbearing. In regards to the left lower extremity weightbearing as tolerated with physical therapy. Dressing change with Xeroform, 4 x 4's and tape. Continue social services director consult for placement. Attestations Medical Necessity Statement*: Defer to medical team Coding Level of Care Code Acute Wireless Architect for [facility] Diagnoses Distal radius fracture, left S52.502A Displaced fracture of left femoral neck S72.002A
[2021-03-24] MEDS: cloNIDine 0.1 mg Tablet 0.05 MG PO ×2 (08:04→20:45)
[2021-03-24] MEDS: HYDROcodone-acetaminophen 10-325 mg Tablet 1 TAB PO (08:04)
[2021-03-24] MEDS: losartan 50 mg Tablet 100 MG PO (08:05)
[2021-03-24] MEDS: clopidogrel 75 mg Tablet PO (08:05)
[2021-03-24] MEDS: sennosides-docusate Tablet 2 TAB PO (08:05)
[2021-03-24] MEDS: citalopram 20 mg Tablet 10 MG PO (08:05)
[2021-03-24] MEDS: enoxaparin 40 mg/0.4 mL Syringe SUBCUT (08:06)
--- NOTE | 2021-03-24 11:57 | PM.DCS ---
Discharge Providers Date of Admission: 03/22/21 17:16 Date of Discharge: March 24, 2021 Attending Provider at Admission: Austin Rosado MD Attending Provider at Discharge: Austin Rosado MD Primary Care Provider: Jodi Tse MD Diagnoses at Discharge Discharge Diagnosis (1) Distal radius fracture, left: Status: Acute (2) Displaced fracture of left femoral neck: Status: Acute Reason for Visit Reason for Visit: FALL/ HIP AND WRIST PAIN Hospital Course Hospital Course 70-year-old female who presented after sustaining a fall at her group home, patient is stating that she lost her balance slipped out of bed and fell on left side. She was sent to the ER for further evaluation, she was diagnosed with left wrist fracture, left hip fracture status post left hip hemiarthroplasty closed reduction of left distal radius with splinting on 03/23. For DVT prophylaxis she will stay on Eliquis 2.5 mg twice a day for 2 weeks and then continue her Plavix regimen. Opioids with bowel regimen also prescribed at the time of discharge. PT did see her after her surgery please see their instructions for further details. Postoperatively she did require nasal cannula oxygen supplementation 3 to 4 L, at the time of discharge she is not requiring supplemental oxygen she was saturating well on room air she is complaining of mild pain in left hip 07/11. She was working with PT and OT. [facility] Physical Exam Narrative: EXAM NARRATIVE: Patient was sitting in her recliner saturating well on room air, eating breakfast elderly female S1, S2 no murmur appreciated clinically does look slightly dehydrated Abdomen soft Lower extremity no vascular compromise Left leg wrapped No neurological deficits Saturating well on room air Awake and alert no Neurological deficits Urinary Catheter Management^: Solis: Cath Placed During This Visit: yes, but has since been removed by the nurse Reason for Continuing Indwelling Catheter: Perioperative Use in Selected Surgeries Urinary Catheter Date of Insertion: 03/23/21 Urinary Catheter Time of Insertion: : Date Urinary Catheter Removed: 03/24/21 Time Urinary Catheter Discontinued: 06:08 Discharge Data Data Completed and Pending: Completed Studies During Hospitalization Category Date Time Status CT head wo con* 7 0450 Urgent Cat Scan 03/22/21 14:34 Completed XR femur LT min 2 V* [id number] Urgent Exams 03/22/21 14:33 Completed XR hip LT 2-3V wo /w pel* [id number] Urge nt Exams 03/22/21 14:33 Completed XR wrist LT 1V 73 [id number] Routine Exams 03/23/21 Completed XR wrist LT min 3 V* [id number] Urgent Exams 03/22/21 14:33 Completed Labs from last 24 hours 03/24/21 03/24/21 03/23/21 02:08 02:08 14:25 WBC 10.2 H 17.4 H RBC 3.34 L 3.86 L Hgb 10.6 L 12.3 Hct 32.3 L 39.2 MCV 96.7 101.6 H D MCH 31.7 31.9 MCHC 32.8 31.4 D RDW 13.2 13.2 Plt Count 222 207 MPV 10.5 H 10.4 Neut % (Auto) 71.5 89.6 Lymph % (Auto) 12.0 4.9 Perry % (Auto) 16.1 4.7 Eos % (Auto) 0.0 0.0 Baso % (Auto) 0.2 0.3 Neut # (Auto) 7.30 15.57 H Lymph # (Auto) 1.2 0.9 Perry # (Auto) 1.7 H 0.8 Eos # (Auto) 0.0 0.0 Baso # (Auto) 0.0 0.1 Nucleated RBC % (a uto) 0 0 Nucleated RBCs # 0.0 0.0 Sodium 139 Potassium 4.4 Chloride 104 Carbon Dioxide 25 Anion Gap 14.4 BUN 21 Creatinine 0.7 GFR Calculation 83.0 L Glucose 142 H Calculated Osmolal ity 293 Calcium 8.5 Vitals: Last Vital Signs Temp 99.3 F 03/24/21 08:00 Pulse 101 H 03/24/21 08:00 Resp 16 03/24/21 08:00 BP 114/70 03/24/21 08:05 Pulse Ox 95 03/24/21 08:00 Discharge Plan Discharge Patient Disposition: Xfer SNF Condition: Stable Prescriptions: New Eliquis 2.5 mg tablet 2.5 mg PO BID Qty: 28 RF: 0 Senna Plus 8.6-50 mg capsule 1 tab-cap PO BID Qty: 30 RF: 0 oxycodone 5 mg tablet 5 mg PO Q8H PRN (Reason: pain) Qty: 20 RF: 0 Continued acetaminophen 325 mg Tablet 325 mg PO Q4H PRN (Reason: Pain) RF: 0 hydrocodone-acetaminophen 10-325 mg Tablet 1 tab PO Q4H PRN (Reason: Pain) RF: 0 Milk of Magnesia 400 mg/5 mL Suspension 30 ml PO DAILY PRN (Reason: Constipation) RF: 0 bisacodyl 10 mg Suppository 10 mg TN DAILY PRN (Reason: Constipation) RF: 0 Enema 19-7 gram/118 mL Enema 118 ml TN DAILY PRN (Reason: Constipation) RF: 0 clonidine HCl 0.1 mg tablet 0.05 mg PO BID@ RF: 0 citalopram 10 mg tablet 10 mg PO DAILY@799 RF: 0 amlodipine 2.5 mg tablet 2.5 mg PO DAILY@2099 RF: 0 simvastatin 20 mg tablet 20 mg PO DAILY@2099 RF: 0 valsartan 320 mg tablet 320 mg PO DAILY@899 RF: 0 fluticasone propion-salmeterol 100-50 mcg/dose blister with device 1 inh INHALATION BID@ RF: 0 clopidogrel 75 mg tablet 75 mg PO DAILY@899 RF: 0 Discharge Orders: Discharge Order (Routine); Ordered 03/24/21 Ordered By: Austin Rosado Referrals: Bg Logan DO [Physician] - 2 weeks Discharge Diet: Regular Discharge Activity: As per PT/OT instructions Activity Restrictions/Additional Instructions: You are being discharged from the hospital today during which time you have been under the care of Dr Logan. You had a Left hip and left distal radius fracture. You were treated for this injury with Left hip hemiarthroplasty and Closed reduction and splinting of wrist. You may resume you normal diet (including any special diets as directed by your primary doctor) as well as your home medications. You should follow up with you primary doctor if you have any questions regarding medication you took prior to your stay in the hospital. You may take your pain medication as prescribed. After the first few days, take your pain medication as needed. Do not drive or drink alcohol while taking your pain medication. Your injury may increase your risk of developing a blood clot,or DVT, in your arm or leg. This could potentially dislodge and travel to your lungs and become a life threatening condition called apulmonary embolus,or PE. You have been prescribed plavix to be taken to prevent this. Frequent movement of the ankles will also help prevent this from occurring. If you develop any new or worsening cough, chestpain, bloody sputum or shortness of breath, call 911 or go to the EmergencyRoom. Always keep your surgical incision/dressing clean and dry. If you experience increasing pain at your incision site, redness, swelling, increasing discharge, foul odors, or fevers (greater than 100.4), night sweats or chills you should call the office at the above number. If you feel this is an emergency you should be evaluated in the Emergency Department of a nearby hospital. Orthopedic Patient Instructions Summary: Weight Bearing: WBAT LLE; NWB LUE Activity: as tolerated. Diet: regular. Splint Care: Keep splint clean and dry. Cover with a plastic bag for bathing. Wound Care: Keep dressing clean and dry. Anticoagulation: Plavix and eliquis 14 days Pain Medication: Take only as needed. Ice, rest and elevation will be of great benefit. Please plan to follow-up [facility] Dr Logan in 2 weeks. You will need to call the clinic [phone] to schedule this visit. Thank you far allowing me to participate in your care. Do not hesitate to call the office with any questions or concerns. Discharge Attestations Time Spent in Discharge Care*: less than 30 min Quality Metrics Clinical Quality Measures During this hospital stay, did patient experience: None Coding Level of Care Code Acute [facility] note Diagnoses Distal radius fracture, left S52.502A Displaced fracture of left femoral neck S72.002A
[2021-03-24] MEDS: atorvastatin 40 mg Tablet 20 MG PO (20:45)
[2021-03-24] MEDS: amlodipine 5 mg Tablet 2.5 MG PO (20:45)
[2021-03-25] VITALS (8 sets, daily range): BP systolic 93–106; BP diastolic 59–72; PULSE 75–96; RESP 18; TEMP 36.5–37.1; O2SAT 91–96
[2021-03-25] MEDS: HYDROcodone-acetaminophen 10-325 mg Tablet 1 TAB PO ×3 (03:17→13:20)
--- NOTE | 2021-03-25 06:40 | PM.PN ---
Documented by User: EMETERIO Peterson 03/25/21 06:44 Subjective Subjective: Interval history: POD 2. No apparent distress. Vitals/I&O/Wt Last Vital Signs Temp 98.7 F 03/25/21 04:00 Pulse 96 03/25/21 04:00 Resp 18 03/25/21 04:00 BP 105/59 03/25/21 04:00 Pulse Ox 91 03/25/21 04:00 03/24/21 03/24/21 03/25/21 14:59 22:59 06:59 Intake Total 180 / 180 Output Total 0 / 0 Balance 180 / 180 Physical Exam Narrative: EXAM NARRATIVE: Left Hip incision c/d, wiggles toes with good cap refill, DF/PF ankles. calves supple LUE: Fingers warm with good cap refill, wiggles digits on Left hand Urinary Catheter Management^: Solis: Cath Placed During This Visit: yes, but has since been removed by the nurse Reason for Continuing Indwelling Catheter: Perioperative Use in Selected Surgeries Urinary Catheter Date of Insertion: 03/23/21 Urinary Catheter Time of Insertion: 11: Date Urinary Catheter Removed: 03/24/21 Time Urinary Catheter Discontinued: 06:08 Data : 03/24/21 02:08 03/24/21 02:08 Attestations Medical Necessity Statement*: Defer to Medical Team Coding Level of Care Code Acute [employer] Business Intelligence Developer for [facility] Fwd Diagnoses Displaced fracture of left femoral neck S72.002A Distal radius fracture, left S52.502A Documented by User: Bg Logan DO 03/25/21 06:52 Physical Exam Urinary Catheter Management^: Solis: Cath Placed During This Visit: no Data : 03/24/21 02:08 03/24/21 02:08 A&P Assessment and plan (1) Displaced fracture of left femoral neck: POD#2 Left hip tigre arthroplasty POD#2 closed reduction left distal radius F/U in ortho clinic two weeks for staple removal and splint to brace/cast Status: Acute (2) Distal radius fracture, left: Status: Acute Coding Level of Care Code Acute [employer] Business [employer] Developer for [employer] Matute Diagnoses Displaced fracture of left femoral neck S72.002A Distal radius fracture, left S52.502A
--- NOTE | 2021-03-25 07:51 | PC.NURSE ---
In room to Straight Cath patient at this time per doctor's order. Patient's bed is completely soaked. Patient assisted to chair. Complete bed change done.
[2021-03-25] MEDS: sennosides-docusate Tablet 2 TAB PO (08:06)
[2021-03-25] MEDS: clopidogrel 75 mg Tablet PO (08:07)
[2021-03-25] MEDS: citalopram 20 mg Tablet 10 MG PO (08:07)
[2021-03-25] MEDS: enoxaparin 40 mg/0.4 mL Syringe SUBCUT (08:09)
--- NOTE | 2021-03-25 10:53 | PC.OT ---
OT TREATMENT HELD TODAY PATIENT IS SCHEDULED FOR DISCHARGE TO SNF TODAY
--- NOTE | 2021-03-25 12:37 | PC.NURSE ---
Report to Yumiko VAZQUEZ at [facility] at this time.
--- NOTE | 2021-03-25 13:51 | P.PN_ITS ---
Subjective Subjective: Interval history: Patient was waiting for authorization yesterday that is why stayed overnight, she will be discharged today back to senior living no overnight events, I asked nursing staffing coordinator to assist her with feeding She does need a lot of encouragement for daily activities including feeding, drinking fluids,etc Vitals/I&O/Wt Last Vital Signs Temp 97.8 F 03/25/21 11:33 Pulse 89 03/25/21 11:33 Resp 18 03/25/21 11:33 BP 93/61 03/25/21 11:33 Pulse Ox 92 03/25/21 11:33 03/24/21 03/25/21 03/25/21 22:59 06:59 14:59 Intake Total 240 / 240 Output Total 0 / 0 Balance 240 / 240 Physical Exam Narrative: EXAM NARRATIVE: Patient was sitting in her chair trying to eat her breakfast S1, S2 Clinically looks dehydrated Abdomen soft Left leg wrapped in dressing No vascular compromise Left arm in sling Urinary Catheter Management^: Solis: Cath Placed During This Visit: yes, but has since been removed by the nurse Reason for Continuing Indwelling Catheter: Perioperative Use in Selected Surgeries Urinary Catheter Date of Insertion: 03/23/21 Urinary Catheter Time of Insertion: : Date Urinary Catheter Removed: 03/24/21 Time Urinary Catheter Discontinued: 06:08 Data : 03/24/21 02:08 03/24/21 02:08 A&P Additional A&P Information Patient will be discharged today back to senior living waited overnight for authorization, no overnight events she will be discharged with medications listed as discharge med rec Attestations Medical Necessity Statement*: Discharge today Coding Level of Care Code Acute [employer] for [employer] Matute
--- NOTE | 2021-03-25 14:46 | PC.CHAP ---
Pastoral Care Encounter/Spiritual Assessment Type of Contact [] Declined manager labor delivery visit [] Patient/Family/Request visit [] Outpatient visit [xx] Follow-up visit [] Physician referral [] Code/Alert [] Routine visit [] Staff referral [] Actively dying [] Patient sleeping [] Family support [] [xx] Out of room [] Palliative care [] [] Receiving care in room [] Pre-surgical visit [] Trauma [] Long length of stay [] ICU visit [] Other: Relational/Emotional Strength [] Patient feels connected with others/family/visitors/staff [] Distress [] Loneliness/isolation [] Abandonment Spirituality of Patient [] Person of Rosibel [] Attends Druze of their Rosibel [] Believes in Prayer [] Reads Bible or Jehovah'S Witness materials [] There are Spiritual issues to be addressed Wire Roller Interventions [] Prayer [] Active listening [] Non-anxious presence [] Spiritual/emotional support [] Crisis/trauma care [] Spiritual counseling [] Bereavement support [] Provided bereavement packet [] Provided Bible/devotional materials [] Provided toy/stuffed animal, coloring book to patient or family member [] Provided Communion [] Anointing/[place] [] Salvation [] Completed spiritual assessment [] Other: Impact on Illness or Injury [] Angry [] Fearful [] Anxious [] Often cries [] Exhaustion [] Unable to work [] Unable to attend tenriism [] Unable to walk/stand [] Unable to read [] Unable to drive [] Unable to eat/drink [] Unable to sleep [] Unable to be with family [] Patient intubated [] Other: Summary Patient was out of room for exam and/or treatment. Follow up later. Time spent with patient
--- NOTE | 2021-03-25 15:22 | PC.SOCIAL ---
IMM Update Page 2 of [facility] updated and reviewed. Copy placed in chart. Timed, initialed and dated.
--- NOTE | 2021-03-25 16:42 | PC.NURSE ---
Patient assisted into [employer] transport van in a wheel chair at this time.
--- NOTE | 2021-03-29 10:42 | PC.SOCIAL ---
discharge follow up call made, spoke with pts nurse at [facility], Ana Paula. she reports patient is doing well. has pain but is up in the chair at this time. nurse reports pt is taking eliquis and oxycodone along with stool softener and all other medications. dressings are dry and intact, keeping the splint clean and dry and wrapping if patient is to take a bath. spoke with Narda in Case management and she is aware of follow up appointment with Dr. Logan and transportation will be set up for that appointment.
== END 2021-03-25 16:43 | disposition skilled nursing facility (03) | DRG 522 ==
LOC: ER 17:22 → MEDSURG 18:28
PROVIDERS: Orthopaedic Surgery; Admitting Provider Internal Medicine; Emergency Provider Emergency Medicine; PCP Family Medicine; Visit Provider Internal Medicine
PROC: 0SRS0JZ Replacement of Left Hip Joint, Femoral Surface with Synthetic Substitute, Open Approach (ICD-10-PCS; CPT 27125; principal; 2021-03-23 10:25)
PROC: 0SRS0JZ Replacement of Left Hip Joint, Femoral Surface with Synthetic Substitute, Open Approach (ICD-10-PCS; 2021-03-23 10:25)
DX: S72.032A Displaced midcervical fracture of left femur, initial encounter for closed fracture (principal); S52.512A Displaced fracture of left radial styloid process, initial encounter for closed fracture; I69.951 Hemiplegia and hemiparesis following unspecified cerebrovascular disease affecting right dominant side; W06.XXXA Fall from bed, initial encounter; F41.8 Other specified anxiety disorders; J44.9 Chronic obstructive pulmonary disease, unspecified; I10 Essential (primary) hypertension; Z87.891 Personal history of nicotine dependence; E78.5 Hyperlipidemia, unspecified; Z79.891 Long term (current) use of opiate analgesic; Z79.02 Long term (current) use of antithrombotics/antiplatelets
CPT/HCPCS: 36415; 51798; 70450; 73100; 73110; 73502; 73552; 76000; 80048; 80053; 83735; 84145; 84484; 85025; 93005; 94640; 96365; 96372; 96374; 97110; 97162; 97167; 97530; 99285; C1776; J0330; J0690; J1100; J1170; J1650; J2270; J2405; J2704; J2710; J3010; J3370; J3490; J7030

== ENCOUNTER → 2021-04-14 15:16 | Outpatient (BNVA) | payer MEDICARE, MEDICAID, SELFPAY | PROVIDERS: PCP Family Medicine; Visit Provider Orthopaedic Surgery | DX: Z47.89 Encounter for other orthopedic aftercare (principal) | CPT/HCPCS: 73110; 97760; L3982 ==

== ENCOUNTER 2021-04-14 16:12 | Outpatient (CLI) | payer MEDICARE, MEDICAID, SELFPAY | END 2021-04-14 16:13 | disposition home or self-care (01) | LOC: SPT 16:13 | PROVIDERS: PCP Family Medicine; Visit Provider Orthopaedic Surgery | DX: Z47.89 Encounter for other orthopedic aftercare (principal) | CPT/HCPCS: 97760; L3982 ==

== ENCOUNTER → 2021-05-10 13:13 | Outpatient (BNVA) | payer MEDICARE, MEDICAID, SELFPAY | PROVIDERS: PCP Family Medicine; Visit Provider Orthopaedic Surgery | DX: Z47.89 Encounter for other orthopedic aftercare (principal); Z96.642 Presence of left artificial hip joint; S52.502D Unspecified fracture of the lower end of left radius, subsequent encounter for closed fracture with routine healing; S52.202D Unspecified fracture of shaft of left ulna, subsequent encounter for closed fracture with routine healing; X58.XXXD Exposure to other specified factors, subsequent encounter | CPT/HCPCS: 73110; 73502 ==

== ENCOUNTER → 2021-08-09 13:43 | Outpatient (BNVA) | payer MEDICARE, MEDICAID, SELFPAY | PROVIDERS: PCP Family Medicine; Visit Provider Orthopaedic Surgery | DX: Z48.89 Encounter for other specified surgical aftercare (principal) | CPT/HCPCS: 73110; 73502 ==

== ENCOUNTER 2022-04-11 10:11 | Outpatient (CLI) | payer MEDICARE, MEDICAID, SELFPAY ==
--- NOTE | 2022-04-11 10:23 | CT_ITS ---
WS: [id number] CT PELVIS WITHOUT CONTRAST. HISTORY: Status post fall. Patient is unable to stand. TECHNIQUE: Contiguous imaging is performed of the pelvis without contrast. Coronal and sagittal refor mats are reviewed. All CT scans at [facility] use at least one of these dose optimization jaylon hniques: automated exposure control; mA and/or kV adjustment per patient size (includes targeted exam s where dose is matched to clinical indication); or iterative reconstruction. DLP: 849.60 mGy.cm COMPARISON: 10/25/2015. Prior LEFT hip arthroplasty. Arthroplasty components appear in good position. No acute fractures. Mil d RIGHT hip joint narrowing. No displacement of the RIGHT femoral head. No acute fractures. Diffuse o steopenia. SI joints are narrowed but there is no sacral insufficiency fracture identified. No soft tissue hematoma. Extensive atherosclerosis throughout the common iliac arteries. Mild aneurysmal dilatation proximal R IGHT common iliac artery to 2.[address]/CT pelvis wo con [id number] IMPRESSION: 1. No pelvic or hip fracture identified. 2. Status post LEFT total hip arthroplasty. 3. 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
== END 2022-04-11 10:12 | disposition home or self-care (01) ==
LOC: RAD 10:11
PROVIDERS: PCP Family Medicine; Visit Provider Nurse Practitioner Family
DX: M25.551 Pain in right hip (principal); Z96.642 Presence of left artificial hip joint; I72.3 Aneurysm of iliac artery
CPT/HCPCS: 72192

== ENCOUNTER 2023-06-08 06:19 | Emergency (ER) | payer MEDICARE, MEDICAID, SELFPAY ==
[2023-06-08 06:21] VITALS: BP 145/84; PULSE 90; RESP 20; TEMP 37.2; O2SAT 91
--- NOTE | 2023-06-08 06:24 | CT_ITS ---
WS: [id number] CT ABDOMEN AND PELVIS WITH CONTRAST HISTORY: abd pain, vomiting blood. TECHNIQUE: Imaging performed of the abdomen and pelvis with IV contrast. Single phase imaging of the abdomen. Coronal and sagittal reformats are submitted. All CT scans at [facility] use at [address] one of these dose optimization techniques: automated exposure control; mA and/or kV adjustment per patient size (includes targeted exams where dose is matched to clinical indication); or iterative re construction. IV CONTRAST: Omnipaque 350; 100 mL IV. Oral contrast: No DLP: 503.22 mGy.cm COMPARISON: 01/17/2018 Lower thorax: Chronic emphysematous changes at the lung bases with bibasilar subsegmental atelectasis . Heart is normal size. No hiatal hernia. Liver/biliary system: Normal size with no intrahepatic dilatation. Gallbladder: Normally distended gallbladder. Stones are present in the lumen of the gallbladder. Ther e is breathing motion artifact obscuring the wall of the gallbladder. No definite cholecystitis. Reba lar appearance of the gallbladder as from 01/17/2018. Pancreas: Pancreatic atrophy. Spleen: Normal size spleen. No mass or infarct. Adrenal glands: Normal. Right kidney: Mild atrophy with no obstruction. Cortical cyst superior pole 1.0 cm. Left kidney: Diffuse cortical atrophy with small cortical hypodensities which are too small to charac terize. No obstruction. Aorta: Moderate atherosclerosis. Ectatic aorta. No aneurysm. Atherosclerotic plaque continues into th e iliac arteries. Proximal RIGHT common iliac artery aneurysm of 2.4 cm. There is very dense calcifie d plaque in the iliac arteries. Calcified plaque extends into the mesenteric arteries but there is no occlusion. Lymphadenopathy: None. Free fluid: None. GI tract: Normally distended stomach. There is a hyperechoic focus in the stomach which may be additi onal. Not likely an area of bleeding. No GI tract obstruction. Moderate diffuse constipation. Abdominal wall: Unremarkable abdominal wall. No hernia. Pelvis: No free fluid or adenopathy within the pelvis. Bones: Lumbar scoliosis. Prior LEFT hip arthroplasty. IMPRESSION: 1. No GI tract obstruction. Single focus of increased density in the stomach. Could potentially be a focal area of active bleeding or more medicinal. 2. Cholelithiasis. Patient has known numerous stones in the gallbladder. 3. Bilateral renal cysts. 4. Advanced atherosclerosis aorta and mesenteric arteries. 5. RIGHT common iliac artery aneurysm 2.4 cm.
--- NOTE | 2023-06-08 06:24 | ECG_ITS ---
[facility] Test Date: 2023-06-08 Pat Name: Elvira Carty Department: Room: Gender: Female Human Services Care Specialist: : [id number] Requested By: Carlos Sharma Order Number: [id number] Mendel MD: Shakila Sánchez M.D. Measurements Intervals [place] Rate: 98 P: 70 UT: 208 QRS: -56 QRSD: 84 T: 80 QT: 344 QTc: 441 Interpretive Statements SINUS RHYTHM POSSIBLE RIGHT VENTRICULAR CONDUCTION DELAY [RSR (QR) IN V1/V2] LEFT ANTERIOR FASCICULAR BLOCK [QRS AXIS <= -45, QR IN I, RS IN II] Possible old anteroseptal AR Compared to ECG 03/22/2021 17:09:35 Left anterior fascicular block now present Left-axis deviation no longer present T-wave abnormality no longer present Electronically Signed On 06-08-2023 16:06:22 INNER TUBE TUBER MACHINE OPERATOR by Shakila Sánchez M.D. [id number]
--- NOTE | 2023-06-08 06:24 | XR_ITS ---
WS: [id number] Portable AP upright chest, 06/08/2023 Clinical Data: dyspnea/cough Comparison: Portable chest, 01/17/2018 Findings: There is a minimal patchy opacity in the left lower lobe which could represent minimal pneu monia and/or atelectasis. No nodules, masses or effusions are seen. The heart is normal. The pulmonar y vascularity is not increased. No pneumothorax is seen. The aortic arch shows tortuosity and calcifi cation. There are monitor leads on the chest wall. Impression: 1. Minimal left lower lobe opacity which could represent atelectasis and/or pneumonia. 2. Atherosclerosis.
[2023-06-08 06:41] VITALS: BP 120/87; PULSE 102; RESP 26; O2SAT 90
[2023-06-08 06:46] LABS: Basophils # 0.1 10^3/uL (0.0-0.1); Basophils % 0.3 %; Eosinophils # 0.1 10^3/uL (0.0-0.8); Eosinophils % 0.8 %; Hematocrit 40.3 % (36-47); Lymphocytes # 1.3 10^3/uL (0.8-4.8); Lymphocytes % 8.7 %; Mean Corpuscular HGB Conc 32.5 g/dL (30-55); Mean Corpuscular Hemoglobin 30.4 pg (27-33); Mean Corpuscular Volume 93.5 fl (85-98); Mean Platelet Volume 10.9 fL (7.4-10.4); Monocytes # 0.9 10^3/uL (0.2-0.9); Monocytes % 6.1 %; Neutrophils # 12.25 10^3/uL (1.8-7.7); Neutrophils % 83.7 %; Nucleated Red Blood Cells % 0 %; Platelet Count 286 10^3/cmm (157-399); Red Blood Count 4.31 10^6/uL (3.85-5.65); Red Cell Distribution Width 13.7 % (12.1-15.1); White Blood Count 14.65 10^3/uL (3.29-11.43)
--- NOTE | 2023-06-08 06:54 | ED_ITS ---
HPI - GI Bleed 2 General: Chief complaint: GI Bleed Stated complaint: Vomiting Blood Time Seen by Provider: 06/08/23 06:24 Source: EMS and RN notes reviewed Mode of arrival: EMS Limitations: other (Dementia) History of Present Illness: 72-year-old female brought in by EMS wit h a report of coffee-ground emesis and a heme positive stool on occult testing. Patient has dementia and is unable to give any meaningful answers or assist with her history. She is on apixaban and clopidogrel. MD complaint: coffee ground emesis and other (Positive occult stool) Review of Systems 2 General: Reports: ROS unobtainable due to mental status PFSH ED 2 PFSH: Medical History COPD (chronic obstructive pulmonary disease) Anxiety with depression History of CVA with residual deficit Right side weakness Essential (primary) hypertension Environmental and seasonal allergies Urine incontinence Dependent on walker for ambulation Surgical History No history of previous surgery Family History Other Cancer Dementia Diabetes Hypertension Stroke Denies family history of Anesthesia complication Bleeding disorder Social History Smoking and tobacco/nicotine status: former use of tobacco/nicotine Second hand smoke exposure: No Alcohol intake: former Substance/Drug Use: never Adopted: No Caregiver/support person: Yes Lives independently: No Household members: family Housing: House Marital status: Number of children: 3 service: No Current occupational status: retired Pets and animals: Yes Pets & animals: cat(s) and dog(s) Do you think of yourself as: Straight/Heterosexual Current gender identity: Female Physical Exam 2 Const: COMMON NORMALS: no acute distress GENERAL APPEARANCE: cooperative and comfortable ORIENTATION/CONSCIOUSNESS: Yes awake HENMT: COMMON NORMALS: normocephalic and atraumatic HEAD & SCALP: n ormocephalic and atraumatic Resp: COMMON NORMALS: normal respiratory effort, No retractions, No use of accessory muscles and clear to auscultation bilaterally AUSCULTATION: clear to auscultation bilaterally Cardio: COMMON NORMALS: regular rate, regular rhythm and No murmurs present (Cardio) RATE: regular rate RHYTHM: regular rhythm GI: COMMON NORMALS: Soft to palpation and No hepatosplenomegaly present A USCULTATION: Yes normoactive bowel sounds PALPATION: Yes Soft to palpation, No Tenderness to palpation present (GI), No Guarding due to palpation present (GI) and Yes No hepatosplenomegaly present Extremity: COMMON NORMALS: normal to inspection, capillary refill normal, no clubbing, cyanosis or edema, no calf tenderness and no pedal edema Skin: COMMON NORMALS: no rashes or lesions noted GENERAL SKIN EXAM: no rashes or lesions noted Course 2 Vital Signs: Vital signs: Vital Signs Temperature 98.9 F 06/08/23 06:21 Pulse Rate 98 06/08/23 09:07 Respiratory Rate 18 06/08/23 09:07 Blood Pressure 154/97 06/08/23 09:07 Pulse Oximetry 91 06/08/23 09:07 Oxygen Delivery Me thod Room Air 06/08/23 07:57 MDM - GI Bleed Medical Decision Making Labs and imaging reviewed. Discussed Dr. Tse who is patient's attending at the nursing also discussed with family. She is a Do Not Recussitate she is already on Protonix family does not wish to do any invasive procedures. Hemoglobin is stable at this point has not had any vomiting since she arrived here both family and attending are in agreement to that at this point increase her Protonix clear liquid diet rechecking hemoglobin in a few days. Family is tending towards a do not hospitalize because of her overall condition and does not want to pursue any aggressive treatments, they are even considering hospice. Medical Records I reviewed the patient's medical records. Lab Data I reviewed the patient's lab results. 06/08/23 06:07 06/08/23 06:07 Laboratory Results WBC 14.65 10^3/uL (3.29-11.43) H 06/08/23 06:07 RBC 4.31 10^6/uL (3.85-5.65) 06/08/23 06:07 Hgb 13.10 g/dL (11.27-16.99) 06/08/23 06:07 Hct 40.3 % (36-47) 06/08/23 06:07 MCV 93.5 fl (85-98) 06/08/23 06:07 MCH 30.4 pg (27-33) 06/08/23 06:07 MCHC 32.5 g/dL (30-55) 06/08/23 06:07 RDW 13.7 % (12.1-15.1) 06/08/23 06:07 Plt Count 286 10^3/cmm (157-399) 06/08/23 06:07 MPV 10.9 fL (7.4-10.4) H 06/08/23 06:07 Neut % (Auto) 83.7 % 06/08/23 06:07 Lymph % (Auto) 8.7 % 06/08/23 06:07 [place] % (Auto) 6.1 % 06/08/23 06:07 Eos % (Auto) 0.8 % 06/08/23 06:07 Baso % (Auto) 0.3 % 06/08/23 06:07 Neut # (Auto) 12.25 10^3/uL (1.8-7.7) H 06/08/23 06:07 Lymph # (Auto) 1.3 10^3/uL (0.8-4.8) 06/08/23 06:07 [place] # (Auto) 0.9 10^3/uL (0.2-0.9) 06/08/23 06:07 Eos # (Auto) 0.1 10^3/uL (0.0-0.8) 06/08/23 06:07 Baso # (Auto) 0.1 10^3/uL (0.0-0.1) 06/08/23 06:07 Nucleated RBC % (auto) 0 % 06/08/23 06:07 Nucleated RBCs # 0.0 /100WBC 06/08/23 06:07 PT 14.10 SECONDS (12.1-14.9) 06/08/23 06:07 INR 1.06 (0.8-1.2) 06/08/23 06:07 APTT 30.6 SECONDS (23.9-36.7) 06/08/23 06:07 Sodium 142 mmol/L (136-145) 06/08/23 06:07 Potassium 3.8 mmol/L (3.5-5.1) 06/08/23 06:07 Chloride 105 mmol/L (98-107) 06/08/23 06:07 Carbon Dioxide 24 mmol/L (22-29) 06/08/23 06:07 Anion Gap 16.8 (5-19) 06/08/23 06:07 BUN 26 mg/dL (8-23) H 06/08/23 06:07 Creatinine 0.5 mg/dL (0.5-0.9) 06/08/23 06:07 GFR Calculation Not Reportable 06/08/23 06:07 Glucose 165 mg/dL (65-115) H 06/08/23 06:07 Calculated Osmolality 302 mOsm/kg (285-295) H 06/08/23 06:07 Lactic Acid 2.0 mmol/L (0.5-2.2) 06/08/23 06:45 Calcium 9.2 mg/dL (8.5-10.5) 06/08/23 06:07 Magnesium 1.9 mg/dL (1.7-2.3) 06/08/23 06:07 Total Bilirubin 0.3 mg/dL (0.15-1.2) 06/08/23 06:07 AST 18 U/L (0-32) 06/08/23 06:07 ALT 11 U/L (0-33) 06/08/23 06:07 Alkaline Phosphatase 65 U/L (35-105) 06/08/23 06:07 Total Protein 7.1 g/dL (6.6-8.7) 06/08/23 06:07 Albumin 3.7 g/dL (3.5-5.2) 06/08/23 06:07 Globulin 3.4 g/dL (1.3-4.6) 06/08/23 06:07 Lipase 33 U/L (13-60) 06/08/23 06:07 Urine Color Yellow (Yellow) 06/08/23 08:10 Urine Appearance Sl hazy (CLEAR) A 06/08/23 08:10 Urine pH 5 (5-7) 06/08/23 08:10 Ur Specific [place] 1.020 (1.005-1.030) 06/08/23 08:10 Urine Protein Neg (Negative) 06/08/23 08:10 Urine Glucose (UA) Norm (Normal) 06/08/23 08:10 Urine Ketones Negative (Negative) 06/08/23 08:10 Urine Blood Neg (Negative) 06/08/23 08:10 Urine Nitrate Negative (Negative) 06/08/23 08:10 Urine Bilirubin Neg (Negative) 06/08/23 08:10 Urine Urobilinogen Norm mg/dL (Negative) 06/08/23 08:10 Ur Leukocyte Esterase Negative (Negative) 06/08/23 08:10 Urine RBC 0-4 /hpf (0-2) H 06/08/23 08:10 Urine WBC 5-10 /hpf (0-5) H 06/08/23 08:10 Ur Squamous Epith Cells 0-4 /hpf (0-5) H 06/08/23 08:10 Amorphous Sediment Not Reportable 06/08/23 08:10 Urine Bacteria 4+ /hpf (NONE) H 06/08/23 08:10 Blood Type A Positive 06/08/23 06:28 Rho(D) Type Rh positive 06/08/23 06:28 Antibody Screen Positive 06/08/23 06:28 All radiology interpretation(s) finalized by discharge Discharge Plan Discharge Patient Disposition: Home Clinical Impression: Upper gastrointestinal hemorrhage, Cystitis Condition: Stable Prescriptions: Changed pantoprazole 40 mg tablet,delayed release (DR/EC) 40 mg PO BID Qty: 60 0RF Discontinued clopidogrel 75 mg tablet 75 mg PO DAILY@0900 No Action (DME) fast form cock up splint See Rx Instructions .Route .MEDSUPPLY Qty: 1 0RF Rx Instructions: As directed acetaminophen 325 mg Tablet 325 mg PO Q4H PRN (Reason: Pain) hydrocodone-acetaminophen 10-325 mg Tablet 1 tab PO Q4H PRN (Reason: Pain) magnesium hydroxide [Milk of Magnesia] 400 mg/5 mL Suspension 30 ml PO DAILY PRN (Reason: Constipation) bisacodyl 10 mg Suppository 10 mg NH DAILY PRN (Reason: Constipation) Enema 19-7 gram/118 mL Enema 118 ml [place] DAILY PRN (Reason: Constipation) amlodipine 2.5 mg tablet 2.5 mg PO DAILY@2100 valsartan 320 mg tablet 320 mg PO DAILY@0900 Senna Plus 8.6-50 mg capsule 1 tab-cap PO BID Qty: 30 0RF clonidine HCl 0.1 mg tablet 0.5 mg PO BID simvastatin 5 mg tablet 5 mg PO QPM Remeron 15 mg Tablet 15 mg PO DAILY TwoCal HN Liquid 1 ea PO TID ondansetron HCl 4 mg tablet 4 mg PO Q4H PRN (Reason: Nausea And Vomiting) Discharge Orders: Discharge ED (Routine); Ordered 06/08/23 Ordered By: Carlos Madera Referrals: Jodi Tse MD [Primary Care Provider] - Discharge Diet: Usual diet Discharge Activity: Resume usual activity Patient Instructions: Opioid Safety, Pain Management Activity Restrictions/Additional Instructions: Thank you for choosing [facility] for your healthcare needs today. Please realize this is an emergency room and that we are providing you with a medical screening exam and this may not be complete and all inclusive of all the testing and or work up that you may need to determine your ailment or severity of your illness. It is very important that you follow up as instructed or that you return to the Emergency Department should you have concerns or if your condition changes or worsens in any way. After discussion with your family and one of your attending physicians we recommend that you return to the group home. Stop clopidogrel increase your pantoprazole to 40 mg twice a day a repeat BMP and CBC should be done in 3 to 4 days. Coding Level of Care Code ED Professional Development Director for Norm Matute
[2023-06-08 06:57] LABS: Alanine Aminotransferase 11 U/L (0-33); Albumin Level 3.7 g/dL (3.5-5.2); Alkaline Phosphatase 65 U/L (35-105); Anion Gap 16.8 (5-19); Aspartate Amino Transferase 18 U/L (0-32); Blood Urea Nitrogen 26 mg/dL (8-23); Calcium 9.2 mg/dL (8.5-10.5); Carbon Dioxide 24 mmol/L (22-29); Chloride 105 mmol/L (98-107); Globulin 3.4 g/dL (1.3-4.6); Glucose 165 mg/dL (65-115); Lipase 33 U/L (13-60); Magnesium 1.9 mg/dL (1.7-2.3); Osmolality Calculated 302 mOsm/kg (285-295); Potassium 3.8 mmol/L (3.5-5.1); Sodium 142 mmol/L (136-145); Total Bilirubin 0.3 mg/dL (0.15-1.2); Total Protein 7.1 g/dL (6.6-8.7)
[2023-06-08 06:58] LABS: INR 1.06 (0.8-1.2)
[2023-06-08 07:00] LABS: Partial Thromboplastin Time 30.6 SECONDS (23.9-36.7)
--- NOTE | 2023-06-08 07:26 | PC.PHAR ---
medications verified using mar from [facility]
[2023-06-08] MEDS: iohexol 350 mg/mL 500 mL Btl (per mL) IV (07:32)
[2023-06-08] MEDS: sodium chloride 0.9% 1,000 ML 999 ML IV (07:55)
[2023-06-08 07:57] VITALS: BP 131/95; PULSE 93; RESP 20; O2SAT 92
[2023-06-08 08:41] LABS: Add Urine Culture? Yes; Add Urine Microscopic? YES; Bacteria Urine 4+ /hpf; Bilirubin Urine Neg (Negative); Blood Urine Neg (Negative); Glucose Urine UA Norm (Normal); Ketones Urine Negative (Negative); Leukocyte Esterase Urine Negative (Negative); Nitrate Urine Negative (Negative); Protein Urine Neg (Negative); RBC Urine 0-4 /hpf (0-2); Squamous Epithelial Cell Urine 0-4 /hpf (0-5); Urine Appearance SL Hazy (CLEAR); Urine Color Yellow (Yellow); Urobilinogen Urine Norm (Negative); pH Urine 5 (5-7)
[2023-06-08] MEDS: pantoprazole 40 mg SDV 80 MG IVP (08:58)
[2023-06-08 09:07] VITALS: BP 154/97; PULSE 98; RESP 18; O2SAT 91
== END 2023-06-08 09:09 | disposition home or self-care (01) ==
PROVIDERS: Emergency Provider Family Medicine; PCP Family Medicine
DX: K92.2 Gastrointestinal hemorrhage, unspecified (principal); N30.90 Cystitis, unspecified without hematuria; Z79.01 Long term (current) use of anticoagulants; Z79.02 Long term (current) use of antithrombotics/antiplatelets
CPT/HCPCS: 36415; 71045; 74177; 80053; 80503; 81001; 83605; 83690; 83735; 85025; 85610; 85730; 86850; 86870; 86900; 86902; 87040; 87077; 87086; 87186; 93005; 96361; 96374; 99285; C9113; J7030; Q9967

== ENCOUNTER 2023-06-18 15:43 | Emergency (ER) | payer MEDICARE, MEDICAID, SELFPAY ==
[2023-06-18 15:45] VITALS: BP 144/89; PULSE 87; RESP 16; O2SAT 92; BMI 20.9
--- NOTE | 2023-06-18 15:49 | CTR_ITS ---
PROCEDURE INFORMATION: Exam: CT Cervical Spine Without Contrast Exam date and time: 06/18/2023 4:43 PM Age: 72 years old Clinical indication: Injury or trauma; Fall; Blunt trauma TECHNIQUE: Imaging protocol: Computed tomography of the cervical spine without contrast. Radiation optimization: All CT scans at this facility use at least one of these dose optimization techniques: automated exposure control; mA and/or kV adjustment per patient size (includes targeted exams where dose is matched to clinical indication); or iterative reconstruction. REPORTING DATA: Count of CT and Cardiac NM exams in prior 12 months: This patient has received [address] and 0 known cardiac nuclear medicine studies in the 12 months prior to the current study. COMPARISON: CT head wo con* [id number] 06/18/2023 4:43 PM RADIATION DOSE METRICS: Total DLP (mGy-cm): 1787.09 FINDINGS: Bones/joints: No acute fracture. Normal alignment. No significant disc bulge or herniation. No severe spinal canal stenosis. No significant neural foraminal narrowing. Lungs: Lung apices are normal. Soft tissues: Unremarkable. CT/CT cervical spin wo con* [id number] IMPRESSION: No acute findings.
--- NOTE | 2023-06-18 15:49 | CTR_ITS ---
PROCEDURE INFORMATION: Exam: CT Head Without Contrast Exam date and time: 06/18/2023 4:43 PM Age: 72 years old Clinical indication: Injury or trauma; Fall; Blunt trauma (contusions or hematomas); Consciousness not specified TECHNIQUE: Imaging protocol: Computed tomography of the head without contrast. Radiation optimization: All CT scans at this facility use at least one of these dose optimization techniques: automated exposure control; mA and/or kV adjustment per patient size (includes targeted exams where dose is matched to clinical indication); or iterative reconstruction. REPORTING DATA: Count of CT and Cardiac NM exams in prior 12 months: This patient has received [address] and 0 known cardiac nuclear medicine studies in the 12 months prior to the current study. COMPARISON: CT head wo con* [id number] 03/22/2021 3:14 PM RADIATION DOSE METRICS: Total DLP (mGy-cm): 1787.08 FINDINGS: Brain: No hemorrhage. No edema. Advanced diffuse cerebral atrophy and sequela of chronic small vessel ischemic disease. No mass effect. Cerebral ventricles: No ventriculomegaly. Paranasal sinuses: Visualized sinuses are unremarkable. No fluid levels. Mastoid air cells: Visualized mastoid air cells are well aerated. Bones/joints: Unremarkable. No acute fracture. Soft tissues: Right forehead contusion. CT/CT head wo con* [id number] IMPRESSION: No acute intracranial abnormality.
--- NOTE | 2023-06-18 15:49 | XRR_ITS ---
PROCEDURE INFORMATION: Exam: XR Right Hip Exam date and time: 06/18/2023 4:04 PM Age: 72 years old Clinical indication: Injury or trauma; Fall; Blunt trauma (contusions or hematomas); Right; Hip TECHNIQUE: Imaging protocol: Radiologic exam of the right hip. Views: 1 view hip with pelvis when performed. COMPARISON: CT abdomen pelvis w con* [id number] 06/08/2023 7:21 AM FINDINGS: Bones/joints: Unremarkable. No acute fracture. Soft tissues: Unremarkable. XR/XR hip RT 2-3V wo/w pel* [id number] IMPRESSION: No acute findings.
[2023-06-18 15:52] VITALS: BP 144/89; PULSE 82; RESP 14; O2SAT 95
--- NOTE | 2023-06-18 15:59 | ED_ITS ---
HPI - Fall General: Chief Complaint: Fall Stated Complaint: rt hip pain Time Seen by Provider: 06/18/23 15:45 Source: patient and EMS Mode of arrival: EMS History of Present Illness: 72-year-old [facility] she [facility] out [facility] her [facility]. Did state that she did hit her head does complain of a headache has a contusion to her forehead complained of right hip pain [facility] the [facility] but denies any pain currently. Patient is wheelchair-bound had a history of a stroke. Associated symptoms-after fall: Reports headache(s); Denies abdominal pain, chest pain or neck pain Review of Systems Const: Denies: fever(s), chills or body aches Eyes: Denies: blurry vision ENMT: Denies: throat pain or dental pain Card: Denies: chest pain Resp: Denies: dyspnea GI: Denies: abdominal pain, nausea, vomiting or diarrhea Musc: Denies: neck pain or back pain Neuro: Reports: headache(s) PFSH ED PFSH: Medical History COPD (chronic obstructive pulmonary disease) Anxiety with depression History of CVA with residual deficit Right side weakness Essential (primary) hypertension Environmental and seasonal allergies Urine incontinence Dependent on walker for ambulation Surgical History No history of previous surgery Family History Other Cancer Dementia Diabetes Hypertension Stroke Denies family history of Anesthesia complication Bleeding disorder Social History Smoking and tobacco/nicotine status: former use of tobacco/nicotine Second hand smoke exposure: No Alcohol intake: former Substance/Drug Use: never Adopted: No Caregiver/support person: Yes Lives independently: No Household members: family Housing: House Marital status: Number of children: 3 service: No Current occupational status: retired Pets and animals: Yes Pets & animals: cat(s) and dog(s) Do you think of yourself as: Straight/Heterosexual Current gender identity: Female Physical Exam Const: COMMON NORMALS: no acute distress and healthy appearing HENMT: COMMON NORMALS: normocephalic; head/scalp not atraumatic (abrasion to forehead) HEAD & SCALP: normocephalic; not atraumatic (abrasion to forehead) Eye: COMMON NORMALS: Equal, round and reactive pupils present and EOMs intact bilaterally PUPIL: Yes Equal, round and reactive pupils present Neck/C-Spine: COMMON NORMALS: full ROM and supple Chest: COMMONS NORMALS: normal inspection of the chest and normal palpation of entire chest wall Resp: COMMON NORMALS: normal respiratory effort, No retractions, No use of accessory muscles and clear to auscultation bilaterally AUSCULTATION: clear to auscultation bilaterally Cardio: COMMON NORMALS: regular rate, regular rhythm and No murmurs present (Cardio) RATE: regular rate RHYTHM: regular rhythm GI: COMMON NORMALS: Normal to inspection, nondistended, normoactive bowel sounds present, Soft to palpation, non-tender and no masses PALPATION: Yes Soft to palpation Extremity: COMMON NORMALS: normal to inspection and full ROM Neuro: COMMON NORMALS: moves all extremities and no focal motor deficits Psych: COMMON NORMALS: mental status grossly normal, Normal thought process present and cooperative THOUGHT PROCESS: Normal thought process present Skin: COMMON NORMALS: no rashes or lesions noted and no wounds GENERAL SKIN EXAM: no rashes or lesions noted Course Vital Signs: Vital signs: Vital Signs Pulse Rate 82 06/18/23 15:52 Respiratory Rate 14 06/18/23 15:52 Blood Pressure 144/89 06/18/23 15:52 Pulse Oximetry 95 06/18/23 15:52 Oxygen Delivery Me thod Room Air 06/18/23 15:52 MDM - Fall Medical Decision Making Patient presents with closed head injury after a fall imaging here is all normal. She is stable for [facility]. Medical Records I reviewed the patient's medical records. Lab Data Radiology Impressions Cervical Spine CT 06/18/23 15:49 IMPRESSION: No acute findings. Head CT 06/18/23 15:49 IMPRESSION: No acute intracranial abnormality. Hip/Pelvis X-Ray 06/18/23 15:49 IMPRESSION: No acute findings. All radiology interpretation(s) finalized by discharge Discharge Plan Discharge Patient Disposition: Home Clinical Impression: CHI (closed head injury) Qualifiers: Encounter type: initial encounter Qualified Code(s): S09.90XA - Unspecified injury of head, initial encounter Fall Qualifiers: Encounter type: initial encounter Qualified Code(s): W19.XXXA - Unspecified fall, initial encounter Condition: Stable Prescriptions: No Action (DME) fast form cock up splint See Rx Instructions .Route .MEDSUPPLY Qty: 1 0RF Rx Instructions: As directed acetaminophen 325 mg Tablet 325 mg PO Q4H PRN (Reason: Pain) hydrocodone-acetaminophen 10-325 mg Tablet 1 tab PO Q4H PRN (Reason: Pain) magnesium hydroxide [Milk of Magnesia] 400 mg/5 mL Suspension 30 ml PO DAILY PRN (Reason: Constipation) bisacodyl 10 mg Suppository 10 mg [place] DAILY PRN (Reason: Constipation) Enema 19-7 gram/118 mL Enema 118 ml [place] DAILY PRN (Reason: Constipation) amlodipine 2.5 mg tablet 2.5 mg PO DAILY@2100 valsartan 320 mg tablet 320 mg PO DAILY@0900 Senna Plus 8.6-50 mg capsule 1 tab-cap PO BID Qty: 30 0RF nitrofurantoin monohyd/m-cryst 100 mg capsule 100 mg PO BID clonidine HCl 0.1 mg tablet 0.5 mg PO BID simvastatin 5 mg tablet 5 mg PO QPM mirtazapine [Remeron] 15 mg Tablet 15 mg PO DAILY TwoCal HN Liquid 1 ea PO TID ondansetron HCl 4 mg tablet 4 mg PO Q4H PRN (Reason: Nausea And Vomiting) pantoprazole 40 mg tablet,delayed release (DR/EC) 40 mg PO BID Qty: 60 0RF Discharge Orders: Discharge ED (Routine); Ordered 06/18/23 Ordered By: Car Nath Referrals: Jodi Tse MD [Primary Care Provider] - 1-3 days Discharge Diet: Advance as tolerated Discharge Activity: Resume usual activity Patient Instructions: Head Injury (ED) Coding Level of Care Code ED Food Order Expediter for Norm Matute
--- NOTE | 2023-06-18 17:57 | PC.NURSE ---
report called to Taylor Hummel. Shannan took report by this nurse, had no further questions.
== END 2023-06-18 21:56 | disposition home or self-care (01) ==
PROVIDERS: Emergency Provider Emergency Medicine; PCP Family Medicine
DX: S00.83XA Contusion of other part of head, initial encounter (principal); Z87.891 Personal history of nicotine dependence; J44.9 Chronic obstructive pulmonary disease, unspecified; Z86.73 Personal history of transient ischemic attack (TIA), and cerebral infarction without residual deficits; I10 Essential (primary) hypertension; W05.0XXA Fall from non-moving wheelchair, initial encounter; Y92.129 Unspecified place in nursing home as the place of occurrence of the external cause
CPT/HCPCS: 70450; 72125; 73502; 99284